=== PATIENT | male | born 1960 | race Caucasian/White ===

== ENCOUNTER 2016-07-30 10:52 | Inpatient (IN) | payer OTHER, MEDICARE ==
--- NOTE | ~2016-07-30 | CR72 ---
[facility] A Service of [facility] RADIOLOGY TEXT RESULTS PATIENT: JAYE CAO LOCATION: [address] : [birth year] UNIT #: [id number] AGE: [address]: Parviz Pelaez MD SEX: M ORDER DR: [id number] [facility] [address] [facility]. [place], [place] [address] [id number] I MR#: [id number] Acc #: [id number] NAME: JAYE CAO : 1960 SEX: M STUDY DATE/TIME: 07/31/2016 22:25 UNIT: [facility] ROOM: [facility] STUDY DESCRIPTION: CR Chest Single View Portable Attending Physician: Parviz Pelaez M.D. Ordering Physician: Parviz Pelaez M.D. Primary Care Physician: Joe De Oliveira Jr., M.D. MEDICAL IMAGING REPORT This report is preliminary unless electronic signature is present EXAM Portable chest. INDICATION Shortness of air. Respiratory failure today. PROCEDURE Frontal view of the chest. COMPARISON 07/30/2016 FINDINGS Heart size is probably stable. There is an ET tube that is positioned right at the silver. There is new interstitial and alveolar opacities in both lungs. No new dense consolidation. No visible pneumothorax. IMPRESSION 1. ET tube just at the silver. 2. New interstitial and alveolar opacities in both lungs with pulmonary edema type pattern. Dictated by... Mustapha Castro M.D. THIS IS AN ELECTRONICALLY VERIFIED REPORT Mustapha Castro M.D. at 08/01/2016 10:08 AM CHERYL/alina TD: 07/31/2016 23:02 JOB #: [id number] [facility] A Service [facility] RADIOLOGY TEXT RESULTS PATIENT: JAYE CAO LOCATION: [address] : [birth year] UNIT #: [id number] AGE: [address]: Parviz Pelaez MD SEX: M ORDER DR: MEDICAL IMAGING REPORT Page 1 of 1 COPY
--- NOTE | ~2016-07-30 | A ---
[facility] Nutrition Therapy DATE: 07/31/16 Patient: JAYE CAO Physician: NORMAN Address: [address] [place] [address] Room/Bed: [address], Zip: [place] [address] Admit Date: 07/30/16 Date of : [birth year] Height: 6 0 Weight: 154 70 NUTRITIONAL ASSESSMENT: REASON: NPO IN ICU ASSESSMENT PT IS 56 Y.O. MALE ADMITTED FOR UTI, AMS, SEPSIS, FEVER PMH: CONTRACTURES, DYSPHAGIA S/P PEG PLACEMENT, DM, HTN, ASTHMA, CVA, TRACHEOSTOMY & REMOVAL, CAD, CHF Anthropometrics: 6'0", WT: 154# (70 KG), BMI: 20.9, 87%IBW Labs: GLU: 118, CA+:7.7, ALB: 2.8 Meds: MIRALAX, LOVENOX, PROTONIX, LIPITOR, NOVOLOG, KCL, IV LEVAQUIN, NACL I/O & Bowel function: Skin Integrity: WOUND (L) LOWER LEG; SKIN BREAKDOWN NOTED UNDER CHIN; PEG SITE WOUND NOTED; SCALP WOUND Estimated Nutrition Needs: 8313-9196 KCAL (30-35 KCAL/KG BW) 84-105 G PRO (1.2-1.5 G PRO/KG BW) FLUIDS CONSISTENT W/KCAL NEEDS OR MANAGE PER MD Assessment: CHART REVIEWED AND EVENTS NOTED. PT SEEN FOR NPO IN ICU ASSESSMENT. PT NON-VERBAL AND IMMOBILE. PT ADMITTED FOR DX ABOVE. AT BEDSIDE REPORTS PT RECEIVES HOME BOLUS FEEDS OF ISOSOURCE 1.5 250 ML/6 CANS DAILY (NOTES TOLERATING AT HOME). OF NOTE, HOME BOLUS CANS IN ROOM. PLANS IN PLACE FOR PT TO TRANSFER TO TELEMETRY FLOOR LATER TODAY. REPORTED NO DIET QUESTIONS AT THIS TIME. RD TO FOLLOW. SEE RECOMMENDATIONS BELOW. OF NOTE, [facility] DOES NOT PROVIDE ISOSOURCE 1.5, BEST ALTERNATIVE IS OSMOLITE 1.5 -HOME ENTERAL NUTRITION BOLUS FEEDS PROVIDE 2250 KCAL, 102 G PRO, 1146 ML FREE H20 Dx: INADEQUATE ORAL INTAKE R/T PMH-DYSPHAGIA AEB PEG IN PLACE, PT PT RECEIVING HOME BOLUS FEEDS. Intervention: 1. NPO 2. PEG TUBE Monitoring, Evaluation and Goals: 1. ENTERAL NUTRITION; PROVIDE >80% ESTIMATED NUTRIENT NEEDS AT GOAL 2. WEIGHTS; PROMOTE WEIGHT MAINTENANCE; PREVENT WEIGHT LOSS 3. LABS; WNL 4. SKIN; PROMOTE SKIN HEALING [facility] Nutrition Therapy DATE: 07/31/16 Patient: JAYE CAO Physician: NORMAN Address: [address] [place] [address] Room/Bed: [facility], Zip: [place] [address] Admit Date: 07/30/16 Date of : [birth year] Height: 6 0 Weight: 154 70 5. GI; PROMOTE REGULAR GI FUNCTION MONITOR: -TF RATE/RESIDUALS -WEIGHTS -LABS Recommendations: 1. ONCE MEDICALLY FEASIBLE, INITIATE HOME BOLUS FEEDS OF ISOSOURCE 1.5/250 ML X 6 CANS DAILY (2 CANS TID OR 2 CANS BREAKFAST, 2 CANS LUNCH, 1 CAN DINNER + 1 CAN HS) -ADEQUATE FOR PT'S CURRENT ESTIMATED NEEDS ADD FREE H20 FLUSHES OF 180 ML q 4 HOURS TO MEET PT'S CURRENT ESTIMATED FLUID NEEDS OR MANAGE PER MD 2. IF 24-HOUR ENTERAL NUTRITION SUPPORT PREFERRED, RECOMMEND ENTERAL NUTRITION OF OSMOLITE 1.5 @ 20 ML/HR, ADVANCE 10 ML q 4 HOURS TO GOAL RATE OF 65 ML/HR -PROVIDES 2340 KCAL, 98 G PRO, 1186 ML FREE H20 3. MONITOR FOR SIGNS OF ENTERAL NUTRITION INTOLERANCE 4. OPTIMIZE BLOOD SUGAR CONTROL REGIMEN RD WILL F/U PER PROTOCOL PT IS MODERATELY COMPROMISED Respectfully, LEONARDO JANSEN MS, RD, LD [employer] [facility] cc: client file
--- NOTE | ~2016-07-30 | CR72 ---
[facility] A Service of [facility] & [facility] RADIOLOGY TEXT RESULTS PATIENT: JAYE CAO LOCATION: [place] [id number] : [birth year] UNIT #: [id number] AGE: [address]: Parviz Pelaez MD SEX: M ORDER DR: [id number] [facility] [address] [facility]. [place], [place] [address] [id number] I MR#: [id number] Acc #: [id number] NAME: JAYE CAO : 1960 SEX: M STUDY DATE/TIME: 08/04/2016 4:23 UNIT: [facility] ROOM: [facility] STUDY DESCRIPTION: CR Chest Single View Portable Attending Physician: Parviz Pelaez M.D. Ordering Physician: Mo Du M.D. Primary Care Physician: Joe De Oliveira Jr., M.D. MEDICAL IMAGING REPORT This report is preliminary unless electronic signature is present EXAM Portable chest INDICATION Respiratory failure. Followup. PROCEDURE Frontal view chest COMPARISON 08/02/2016 FINDINGS Heart size unchanged. Persistent blunting left costophrenic angle. No new dense consolidation. ET tube is stable. IMPRESSION Stable. Dictated by... Mustapha Castro M.D. THIS IS AN ELECTRONICALLY VERIFIED REPORT Mustapha Castro M.D. at 08/04/2016 10:24 PM CHERYL/sylwia TD: 08/04/2016 09:03 JOB #: [id number] MEDICAL IMAGING REPORT Page 1 of 1 COPY
--- NOTE | ~2016-07-30 | CO ---
Unit #: [id number] #: [id number] Patient: JAYE CAO [id number] [address] [address] [id number] I MR#: [id number] NAME: JAYE CAO ROOM: [facility] Age: 56 Sex: M Admission Date: 07/30/2016 : 1960 Attending Physician: Parviz Pelaez M.D. Primary Care Physician: Joe De Oliveira Jr., M.D. Consultation Date: 07/31/2016 CONSULTATION REPORT REASON FOR CONSULT ICU management. REASON FOR ADMISSION Altered mental status and fever. 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 The patient apparently lives at home with his in spite of his severe condition. He normally shows a thumbs up and he responds by shaking his head yes and no. She stated that they were more active for the last couple of weeks where they went to [employer] and [employer]. Yesterday, she noted that he was very hard to arouse with a high fever so she brought him to the emergency room. On presentation, the patient had a fever of 104 with a borderline blood pressure and significant UTI on his urinalysis. The patient has a condom catheter at home but his genitalia appears very erythematous. PAST MEDICAL HISTORY 1. Basilar artery CVA. 2. Ischemic cardiomyopathy. 3. Previous history of Staph bacteremia. 4. Diabetes. 5. Hypertension. 6. Asthma. PAST SURGICAL HISTORY 1. Trach. 2. PEG. SOCIAL HISTORY The patient lives with his and son. He is a lifelong nonsmoker. No history of alcohol or drug abuse. FAMILY HISTORY CVA. ALLERGIES Unit #: [id number] #: [id number] Patient: JAYE CAO Penicillin. HOME MEDICATIONS 1. Mucus pill. 2. Lisinopril. 3. Allergy pill. 4. Aspirin. 5. Tylenol. REVIEW OF SYSTEMS Unable to obtain due to patient condition. PHYSICAL EXAMINATION GENERAL: The patient is very lethargic. VITAL SIGNS: Blood pressure currently is 98.3, however, it was 104 on presentation. Blood pressure is 115/69, respiratory rate 16, O2 saturation 98%. HEENT: Atraumatic with disconjugate gaze. NECK: Very flexed. CHEST: Decreased breath sounds bilaterally. HEART: S1, S2. No murmur. ABDOMEN: Difficult to examine due to his condition but it was soft with a PEG tube in place. Slightly distended but nontender. EXTREMITIES: Severely contracted with trace edema. SEDIMENTATIONIST: The patient is nonverbal. He is very lethargic and hard to arouse. SKIN: Per staff report, he has multiple skin ulcers. DIAGNOSTIC STUDIES LABORATORY: Creatinine 0.6, chloride 102, CO2 25, white blood count 8.2, hemoglobin 13.3, platelets 106. IMAGING: Chest x-ray unremarkable. ASSESSMENT 1. Toxic metabolic encephalopathy. 2. Sepsis. 3. Urinary tract infection. 4. Severe contraction. 5. Cerebrovascular accident. 6. Malnutrition. 7. Ischemic cardiomyopathy. 8. Diabetes. 9. Hypertension. PLAN 1. The patient's vital signs are better right now after hydration and antibiotics. However, we need to discuss with his heart condition as he reportedly has ischemic cardiomyopathy but I am unable to see any diuretics on his medication list. 2. Will continue broad spectrum antibiotics pending culture. 3. We will monitor for complications like endocarditis, up from infected wounds. 4. Toribio catheter in place. He may need urology evaluation. 5. DVT prophylaxis. I would like to thank you for allowing me to be part of this patient's care. Unit #: [id number] #: [id number] Patient: JAYE CAO Dictated by... Cherry Thomas TD: 07/31/2016 08:18 JOB #: [id number] CONSULTATION REPORT Page 1 of 1 X HELENE SAMPSON MD CONSULTATION REPORT
--- NOTE | ~2016-07-30 | CR71 ---
[facility] A Service of [facility] & [facility] RADIOLOGY TEXT RESULTS PATIENT: JAYE CAO LOCATION: [address] : [birth year] UNIT #: [id number] AGE: [address]: Parviz Pelaez MD SEX: M ORDER DR: [id number] [facility] [address] [facility]. [place], [place] [address] [id number] I MR#: [id number] Acc #: [id number] NAME: JAYE CAO : 1960 SEX: M STUDY DATE/TIME: 07/31/2016 22:46 UNIT: [facility] ROOM: [facility] STUDY DESCRIPTION: CR Chest Single View Attending Physician: Parviz Pelaez M.D. Ordering Physician: Rose Mary Enciso M.D. Primary Care Physician: Joe De Oliveira Jr., M.D. MEDICAL IMAGING REPORT This report is preliminary unless electronic signature is present EXAM Chest x-ray, 07/31 at 22:46. INDICATIONS Endotracheal tube placement today. FINDINGS AP portable views of the chest are compared with earlier this evening. The endotracheal tube has been pulled back and is now in the [id number]-vk-[id number] trachea in good position. Bilateral infiltrates are again seen. These are not significantly changed and presumably reflect multifocal pneumonia. Dictated by... Victoriano Carey Jr., M.D. THIS IS AN ELECTRONICALLY VERIFIED REPORT Victoriano Carey Jr., M.D. at 08/01/2016 6:08 AM DEVON/alina TD: 07/31/2016 23:14 JOB #: [id number] MEDICAL IMAGING REPORT Page 1 of 1 COPY
--- NOTE | ~2016-07-30 | CR72 ---
[facility] A Service of [facility] & [facility] RADIOLOGY TEXT RESULTS PATIENT: JAYE CAO [facility] [birth year] UNIT #: [id number] AGE: [address]: Theodora Stark MD SEX: M ORDER DR: [id number] [facility] [address] [facility]. [place], [place] [address] [id number] I MR#: [id number] Acc #: [id number] NAME: JAYE CAO : 1960 SEX: M STUDY DATE/TIME: 07/30/2016 11:59 UNIT: [facility] ROOM: [id number] STUDY DESCRIPTION: CR Chest Single View Portable Attending Physician: Theodora Stark M.D. Ordering Physician: Halley Nieto M.D. Primary Care Physician: Joe De Oliveira Jr., M.D. MEDICAL IMAGING REPORT This report is preliminary unless electronic signature is present EXAM Portable chest INDICATION Fever today. Altered mental status. COMPARISON 03/13/2016 FINDINGS Study is severely limited due to head position. There is some atelectasis in the lung bases. Heart size appears unchanged. IMPRESSION Severely limited study due to head positioning. There is some atelectasis or consolidation within the right lung base. Dictated by... Pradeep Brown M.D. THIS IS AN ELECTRONICALLY VERIFIED REPORT Pradeep Brown M.D. at 07/30/2016 6:06 PM MARCOS/sylwia TD: 07/30/2016 15:47 JOB #: [id number] MEDICAL IMAGING REPORT Page 1 of 1 COPY
--- NOTE | ~2016-07-30 | CR72 ---
[facility] A Service of [facility] RADIOLOGY TEXT RESULTS PATIENT: JAYE CAO LOCATION: [place] [address]04 : [birth year] UNIT #: [id number] AGE: [address]: Parviz Pelaez MD SEX: M ORDER DR: [id number] [place] [address] [facility]. [place], [place] [address] [id number] I MR#: [id number] Acc #: [id number] NAME: JAYE CAO : 1960 SEX: M STUDY DATE/TIME: 08/05/2016 16:49 UNIT: [facility] ROOM: [facility] STUDY DESCRIPTION: CR Chest Single View Portable Attending Physician: Parviz Pelaez M.D. Ordering Physician: [facility] Primary Care Physician: Joe De Oliveira Jr., M.D. MEDICAL IMAGING REPORT This report is preliminary unless electronic signature is present EXAM Portable chest 08/05/2016 HISTORY 56-year-old male with shortness of air for 1 week. Sepsis. Possible lung donor. COMPARISON STUDIES Chest 08/05/2016. CT chest 08/05/2016. FINDINGS Frontal chest demonstrates small bilateral pleural effusions and bibasilar atelectasis. No pneumothorax. Heart size and mediastinum within normal limits. Pulmonary vasculature unremarkable. Endotracheal tube in stable position. IMPRESSION No change in small bilateral pleural effusions and bibasilar atelectasis. Endotracheal tube stable. STAT * RESULT Dictated by... Efren Singh M.D. THIS IS AN ELECTRONICALLY VERIFIED REPORT Efren Singh M.D. at 08/07/2016 1:31 PM ANTELMO/heather TD: 08/05/2016 21:22 [facility] A Service of [facility] RADIOLOGY TEXT RESULTS PATIENT: JAYE CAO LOCATION: [address]04 : [birth year] UNIT #: [id number] AGE: [address]: Parviz Pelaez MD SEX: M ORDER DR: JOB #: [id number] MEDICAL IMAGING REPORT Page 1 of 1 COPY
--- NOTE | ~2016-07-30 | CR72 ---
[facility] A Service of [facility] & [facility] RADIOLOGY TEXT RESULTS PATIENT: JAYE CAO LOCATION: [address] : [birth year] UNIT #: [id number] AGE: [address]: Parviz Pelaez MD SEX: M ORDER DR: [id number] [facility] [address] [facility]. [place], [place] [address] [id number] I MR#: [id number] Acc #: [id number] NAME: JAYE CAO : 1960 SEX: M STUDY DATE/TIME: 08/01/2016 05:31 UNIT: [facility] ROOM: [facility] STUDY DESCRIPTION: CR Chest Single View Portable Attending Physician: Parviz Pelaez M.D. Ordering Physician: Rose Mary Enciso M.D. Primary Care Physician: Joe De Oliveira Jr., M.D. MEDICAL IMAGING REPORT This report is preliminary unless electronic signature is present EXAM Portable chest, 08/01 at 05:31. INDICATIONS Respiratory failure. Pneumonia. FINDINGS AP portable views of the chest are compared with 07/31/2016. This exam is degraded by extremely poor positioning despite repeating it. The patient's chin overlies large portions of the chest. There is still probably some consolidation in both bases. I cannot assess the left lung apex at all. No convincing right-side pneumothorax. ET tube appears to be at the mid tracheal level, but, again, this is poorly evaluated as well. Dictated by... Victoriano Carey Jr., M.D. THIS IS AN ELECTRONICALLY VERIFIED REPORT Victoriano Carey Jr., M.D. at 08/01/2016 9:26 PM DEVON/deisy TD: 08/01/2016 07:18 JOB #: [id number] MEDICAL IMAGING REPORT Page 1 of 1 COPY
--- NOTE | ~2016-07-30 | CO ---
Unit #: [id number] #: [id number] Patient: JAYE CAO [id number] [address] [place], [place] [address] [id number] I MR#: [id number] NAME: JAYE CAO ROOM: [facility] Age: 56 Sex: M Admission Date: 07/30/2016 : 1960 Attending Physician: Parviz Pelaez M.D. Primary Care Physician: Joe De Oliveira Jr., M.D. Consultation Date: 07/30/2016 CONSULTATION REPORT REASON FOR CONSULTATION Elevated troponin. HISTORY OF PRESENT ILLNESS The patient is a 56-year-old male who is known to [facility]. Back in 2012 the patient had a non-STEMI and also had a cardiac cath. The cardiac cath showed severe 3-vessel coronary artery disease. At that time it was decided the patient was not a surgical candidate. The patient was also diagnosed with ischemic cardiomyopathy and was found to have an LVEF of 20%. Additional past medical history includes hypertension, diabetes and asthma. In 2011 the patient had a basilar artery CVA with dysphagia and PEG tube placement. He is nonverbal. He did have a trach placed that has been reversed. Most of my medical history has been obtained from the chart, discussion with the ER and previous past medical records. The patient's was also at the bedside. Again, the patient is nonverbal and cannot communicate with me during my interview. The patient's reports that twice last week she had taken the patient to [facility] to sit in the water. She reports then that she did scrape his leg. She reports that he has not had any unusual behavior for him. Typically, he communicates with her by being able to squeeze his hands or give her a thumbs up and a thumbs down. Typically, his eyes are open. The patient's noted today that he seemed more obtunded. She checked his temperature at home, and it was found to be 104. The patient's brought him to the emergency department for further evaluation. In the emergency department, the patient's initial vital signs were a temperature of 104.8, blood pressure 129/94, heart rate 109, respirations 26, and he is oxygenating 97%. Laboratory findings were concerning for urinary tract infection. The hospitalist team has admitted the patient, and the patient is currently receiving a STAT dose of meropenem. The patient's troponin was found to be 0.08. EKG shows normal sinus rhythm with old inferior Q waves, poor R wave progression and a rate of 100 beats per minute. Cardiology has been consulted for further workup. PAST MEDICAL HISTORY 1. Cardiac cath from December 11, 2012 showed severe 3-vessel coronary artery disease. His left main showed 20% distal stenosis while the mid LAD showed 70% stenosis. Both diagonals proximally had 80% stenosis. Apical branch had 90% stenosis. The patient's left circumflex was nondominant. The first marginal is large, and prior to Unit #: [id number] #: [id number] Patient: JAYE CAO that there was 90% to 95% diffuse stenosis. After the first large marginal branch, it was 100% occluded with collaterals from the left. The patient's RCA is dominant for posterior circulation, 100% occluded distally with quwat-ij-pjjjk and chxt-vo-xmtgk collateralization. At that time his EF was found to be 20%. 2. Ischemic cardiomyopathy with an ejection fraction of 20%. 3. 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 4. Vertebral artery stents. 5. History of non-STEMI. 6. Diabetes. 7. Hypertension. 8. History of pyelonephritis. 9. Asthma. 10. Contractures. PAST SURGICAL HISTORY 1. Cardiac cath, as detailed above. 2. Bilateral vertebral artery stents. 3. History of trach with reversal. 4. PEG tube placement. ALLERGIES Penicillin. HOME MEDICATIONS Zestril 2.5 mg p.o. daily p.r.n. FAMILY HISTORY CVA. SOCIAL HISTORY The patient is nonverbal and immobile. He has a PEG tube. He lives with his who performs all care for the patient. He has been a nonsmoker and a nondrinker. REVIEW OF SYSTEMS A 10-point review of systems was unable to be completed secondary to the patient's mentation. PHYSICAL EXAMINATION GENERAL: The patient is obtunded/lethargic. VITAL SIGNS: Temperature 103.1, heart rate 90, respirations 16, blood pressure 110/86, and he is oxygenating 95%. HEENT: Head is normocephalic. He does have a scalp wound on the top of his head. Pupils are sluggish. NECK: Supple. Trachea is midline. Normal carotid upstrokes. CHEST: Lungs are diminished bilaterally. No wheezes. CARDIOVASCULAR: S1, S2. Regular rate and rhythm. No murmurs, rubs or gallops appreciated. ABDOMEN: Abdomen is soft, nontender, nondistended. Patient does have a PEG tube. Bowel sounds are positive in all quadrants. SKIN: Warm, dry. The patient does have a laceration on his left calf and a scalp wound. EXTREMITIES: No clubbing or cyanosis. The patient has trace bilateral lower extremity edema. : The patient has a Toribio catheter placed with dark yellow urine. NEUROLOGIC: The patient, at baseline, is nonverbal. Currently obtunded. Unit #: [id number] #: [id number] Patient: JAYE CAO DIAGNOSTIC STUDIES LABORATORY RESULTS: White blood cells 8, hemoglobin 15, hematocrit 46.9, platelets 131. Sodium 136, potassium 3.4, chloride 100, CO2 26, BUN 22, creatinine 0.7, glucose 165. Urinalysis positive. Blood cultures and urine cultures are pending. Napdn-em-njcm troponin was 0.08 and now 0.05. CARDIOVASCULAR: EKG shows normal sinus rhythm with a rate of 100 beats per minute. Q waves in the inferior leads and poor R wave progression. ASSESSMENT 1. Elevated troponin of 0.08. 2. Toxic metabolic encephalopathy. 3. Sepsis. 4. Urinary tract infection. 5. Severe 3-vessel disease in 2013, not a surgical candidate. 6. Ischemic cardiomyopathy with an LVEF of 20% in 2013. 7. Hypertension. 8. History of non-STEMI in 2012. 9. Basilar artery CVA in 2011 with dysphagia, PEG tube and stent placement. 10. Nonverbal. 11. Diabetes. 12. Leg/scalp wounds. 13. Asthma. 14. Nonsmoker. 15. Full code. PLAN At this time will check an EKG in the morning and obtain a two-D echocardiogram. We will trend the patient's cardiac enzymes and troponin q.6 hours x3. We will check a BMP, mag, TSH and lipid panel in the morning. We will start the patient on Lovenox 1 mg/kg subcu daily. Will also add Lipitor 20 mg daily through PEG tube, aspirin 81 mg through PEG tube and Plavix [address] mg [address] PEG tube. Dr. Hebert will see and evaluate the patient, and further recommendations will be made. Dictated by... Louise Blunt A.P.R.N. for Dominick Hebert M.D. AM/jen TD: 07/31/2016 08:35 JOB #: [id number] CONSULTATION REPORT Page 1 of 1 X Louise Blunt APRN X CONSULTATION REPORT
--- NOTE | ~2016-07-30 | CR72 ---
[facility] A Service of [facility] & [facility] RADIOLOGY TEXT RESULTS PATIENT: JAYE CAO LOCATION: [address] : [birth year] UNIT #: [id number] AGE: [address]: Parviz Pelaez MD SEX: M ORDER DR: [id number] [facility] [address] [facility]. [place], [place] [address] [id number] I MR#: [id number] Acc #: [id number] NAME: JAYE CAO : 1960 SEX: M STUDY DATE/TIME: 08/04/2016 20:53 UNIT: [facility] ROOM: [facility] STUDY DESCRIPTION: CR Chest Single View Portable Attending Physician: Parviz Pelaez M.D. Ordering Physician: Ed Hamlet Alvarez M.D. Primary Care Physician: Joe De Oliveira Jr., M.D. MEDICAL IMAGING REPORT This report is preliminary unless electronic signature is present EXAM Portable chest HISTORY Organ donor patient. COMPARISON Portable chest, 08/04/2016 FINDINGS Portable view of the chest demonstrates a endotracheal tube in place, unchanged. Probable small left pleural effusion. Right lung remains clear. Mild prominence of the interstitium could reflect interstitial edema. Heart size within normal limits. No pneumothorax. Dictated by... Iam Brown M.D. THIS IS AN ELECTRONICALLY VERIFIED REPORT Iam Brown M.D. at 08/05/2016 1:18 PM CARMEN/stacie TD: 08/04/2016 21:53 JOB #: [id number] MEDICAL IMAGING REPORT Page 1 of 1 COPY
--- NOTE | ~2016-07-30 | CR72 ---
[facility] A Service of [facility] & [facility] RADIOLOGY TEXT RESULTS PATIENT: JAYE CAO LOCATION: [place] [id number] : [birth year] UNIT #: [id number] AGE: [address]: Parviz Pelaez MD SEX: M ORDER DR: [id number] [facility] [address] [facility]. [place], [place] [address] [id number] I MR#: [id number] Acc #: [id number] NAME: JAYE CAO : 1960 SEX: M STUDY DATE/TIME: 08/02/2016 5:47 UNIT: [facility] ROOM: [facility] STUDY DESCRIPTION: CR Chest Single View Portable Attending Physician: Parviz Pelaez M.D. Ordering Physician: Samuel Lange M.D. Primary Care Physician: Joe De Oliveira Jr., M.D. MEDICAL IMAGING REPORT This report is preliminary unless electronic signature is present EXAM Portable chest one view, 08/02/16 COMPARISON: 08/01/16 HISTORYL Respiratory failure requiring intubation for two days.. FINDINGS ET tube in place tip 4 cm above the silver. Question small area of atelectasis or infiltrate at the left lung base. Otherwise, while there is mild interstitial prominence, there is no consolidation or effusion or pneumothorax. Heart size normal. Dictated by... Jovan Nguyen M.D. THIS IS AN ELECTRONICALLY VERIFIED REPORT Jovan Nguyen M.D. at 08/02/2016 3:51 PM JANINA/shakeel TD: 08/02/2016 10:48 JOB #: [id number] MEDICAL IMAGING REPORT Page 1 of 1 COPY
--- NOTE | ~2016-07-30 | CT4 ---
[facility] A Service of [facility] & [facility] RADIOLOGY TEXT RESULTS PATIENT: JAYE CAO LOCATION: [address] : [birth year] UNIT #: [id number] AGE: [address]: Parviz Pelaez MD SEX: M ORDER DR: [id number] [facility] [address] [facility]. [place], [place] [address] [id number] I MR#: [id number] Acc #: [id number] NAME: JAYE CAO : 1960 SEX: M STUDY DATE/TIME: 07/30/2016 15:54 [facility] STUDY DESCRIPTION: CT Abd and Pelv Wo Cont Attending Physician: Theodora Stark M.D. Ordering Physician: Halley Nieto M.D. Primary Care Physician: Joe De Oliveira Jr., M.D. MEDICAL IMAGING REPORT This report is preliminary unless electronic signature is present EXAM CT of the abdomen and pelvis without contrast. INDICATION Fever, generalized abdominal tenderness starting today. TECHNIQUE Axial CT images were obtained from the dome of the diaphragm to the symphysis pubis. No intravenous contrast material was administered. This CT exam was performed with one or more of the following radiation dose reduction techniques: automatic exposure control, adjustment of mA and/or kV according to patient size, and iterative reconstruction. Patient's CT of the chest will be dictated separately. FINDINGS Liver appears unremarkable as is the gallbladder. The spleen appears unremarkable. Patient has a gastrostomy tube which appears to be appropriately positioned within the stomach. Adrenal glands are normal. Pancreas is mildly atrophic. No hydronephrosis is seen in either kidney. No stones are seen within either kidney. There is ectasia of the infrarenal abdominal aorta measuring up to 2.4 x 2.3 cm. The appendix is visualized and is within normal limits. This patient has a large volume of fecal material identified within the rectum likely reflecting fecal impaction. This has certainly increased when compared to the prior study from March 18, 2016. Extensive fecal burden is seen throughout the remainder of the colon likely reflecting some additional constipation. There is no evidence of mechanical small bowel obstruction. No pneumatosis, free air or free fluid is seen. Patient has a Toribio catheter within the urinary bladder which is decompressed, and the patient is noted to have stones within the urinary bladder. Review of bony windows demonstrates heterotopic ossification around the hips bilaterally. [facility] A Service of [facility] RADIOLOGY TEXT RESULTS PATIENT: JAYE CAO LOCATION: [address] 339-01 : [birth year] UNIT #: [id number] AGE: [address]: Parviz Pelaez MD SEX: M ORDER DR: IMPRESSION 1. Large volume of fecal material identified within the rectum. Findings are favored to represent fecal impaction. Proximal to this, patient is noted to have some fecal burden seen throughout the colon, likely reflecting diffuse constipation. No dilated loops of small bowel are seen to suggest a mechanical small bowel obstruction. 2. The appendix is visualized and is within normal limits. 3. Gastrostomy tube appears appropriately positioned within the stomach. 4. Urinary bladder is decompressed with a Toribio catheter. Multiple bladder stones are again seen. Dictated by... Ester Ruano M.D. THIS IS AN ELECTRONICALLY VERIFIED REPORT Ester Ruano M.D. at 07/31/2016 4:53 PM EDILBERTO/alina TD: 07/30/2016 21:20 JOB #: [id number] MEDICAL IMAGING REPORT Page 1 of 1 COPY
--- NOTE | ~2016-07-30 | CR72 ---
[facility] A Service of [facility] & [facility] RADIOLOGY TEXT RESULTS PATIENT: JAYE CAO LOCATION: [place] [id number] : [birth year] UNIT #: [id number] AGE: [address]: Parviz Pelaez MD SEX: M ORDER DR: [id number] [facility] [address] [place], [place] [address] [id number] I MR#: [id number] Acc #: [id number] NAME: JAYE CAO : 1960 SEX: M STUDY DATE/TIME: 08/05/2016 8:58 UNIT: [facility] ROOM: [facility] STUDY DESCRIPTION: CR Chest Single View Portable Attending Physician: Parviz Pelaez M.D. Ordering Physician: Parviz Pelaez M.D. Primary Care Physician: Joe De Oliveira Jr., M.D. MEDICAL IMAGING REPORT This report is preliminary unless electronic signature is present EXAM Portable chest HISTORY Respiratory failure, code evaluation. FINDINGS An AP view is obtained. The patient is intubated with ET tube above the silver. Heart size is stable. There is some consolidation at the left base. Lungs otherwise are clear. CONCLUSION Consolidation left lung base. ET tube in good position. Chest otherwise clear. Dictated by... Davis Hou M.D. THIS IS AN ELECTRONICALLY VERIFIED REPORT Davis Hou M.D. at 08/06/2016 3:38 PM SHALA/shakeel TD: 08/05/2016 10:54 JOB #: [id number] MEDICAL IMAGING REPORT Page 1 of 1 COPY
--- NOTE | ~2016-07-30 | CO ---
Unit #: [id number] #: [id number] Patient: JAYE CAO [id number] [facility] [address] [facility]. [place], [place] [address] [id number] I MR#: [id number] NAME: JAYE CAO ROOM: [facility]IC2 Age: 56 Sex: M Admission Date: 07/30/2016 : 1960 Attending Physician: Parviz Pelaez M.D. Primary Care Physician: Joe De Oliveira Jr., M.D. Consultation Date: 08/02/2016 CONSULTATION REPORT PRIMARY CARE PHYSICIAN Joe De Oliveira M.D. CONSULTING PHYSICIAN Dr. Tomer Lange. REASON FOR CONSULT Abnormal CT of the head. PATIENT IDENTIFICATION This is a 56-year-old male, evaluated in ICU room 4 at [facility]. SOURCE OF INFORMATION Obtained from the patient's as well as nursing staff and medical staff and the medical record. HISTORY OF PRESENT ILLNESS This is a 56-year-old male with past medical history of basilar artery stroke per the 5+ years ago. She states he was treated at [facility]. His baseline neurologic status is very low functioning according to the family. He has a history of CAD. He presents to [facility] with fever and altered mental status. Admitted with urinary tract infection. Apparently, there was concern about his airway and it was recommended by the ED physician and also Dr. Stark the admitting physician that the patient be intubated; however, the at that time is documented as refusing intubation. The patient was admitted for treatment of UTI and sepsis with initial lactic acid of 1.1. He is being treated for non-STEMI with elevated troponin of 0.08 on arrival. Cardiology is following. He also has ischemic cardiomyopathy with an LVEF of 20% in 2013. Neurology was asked to evaluate further as he has an abnormal CT scan of the head. Apparently, looking at nursing notes on 08/01/2016 at 21:30, Dr. Enciso was informed of an elevated heart rate of 135 to 166 and the was requesting pain medication for the patient. In the morning, the Toribio catheter was removed. The nurse received orders for IV morphine and metoprolol; however, the refused the morphine after orders were received. The patient apparently did receive the metoprolol. Apparently, the patient also had some increased rhonchi along with elevated heart rate. Stat portable chest x-ray was ordered. Efforts are being made to be possibly transferred to the ICU given his deterioration and the smoking pipe coater was called at that time. At that time, the patient was noted to be in PEA. CPR was begun and Code Blue was called. The patient was sent to the ICU for further evaluation. The patient continues to have decreased mental status; though, he has had Unit #: [id number] #: [id number] Patient: JAYE CAO significantly decreased mental status apparently since 07/28/2016 according to the family. On arrival, his [place] Coma Scale was documented as a 3. At baseline, apparently able to nod his head and give a thumbs up and squeeze with his right hand, move some toes, but other than that, he is nonverbal from his prior stroke. At this time, the patient is unresponsive. He is intubated. A CT scan was done of the head on 08/01/2016 following his Code blue. The exam is limited as the patient was scanned essentially coronally due to kyphosis, but it is markedly abnormal. There is diffuse infarct noted involving the entirety of the cerebellum and the entirety of the left cerebral hemisphere with a large portion of the right hemisphere also abnormal particularly in the HAZARDOUS MATERIAL TECHNICIAN distribution with findings keeping with global anoxic event with some effacement of the left lateral ventricle and appears to be a component of midline shift to the right. There is diffuse sulcal effacement. Imaging has been reviewed with Dr. Mckeon. Prognosis is very poor. PAST MEDICAL HISTORY 1. History of per the family of basilar artery stroke. She states that he was seen at [facility] 5+ years ago. Apparently, the patient received IV alteplase and underwent vertebral artery stenting. He has residual dysphagia, PEG tube placement and at one point, had a tracheostomy, but that has since been removed. Following a stroke, he has been essentially nonverbal at baseline per family. He is able to squeeze his right hand and give a thumbs up, but is essentially otherwise unable to communicate or move at baseline. 2. Admission to [facility] in 03/2016 for altered mental status and pyelonephritis. 3. Congestive heart failure with echocardiogram from 12/2012 that showed ejection fraction of 15% to 20%. 4. CAD. 5. History of cardiac catheterization in 2012 that showed left main coronary artery 20% distal stenosis, LAD with extensive plaque in the midportion 70%, two diagonal 80% proximal stenosis apical branch, 90% stenosis first marginal large prior to that severe 90% to 95% diffuse stenosis after the first large marginal branches are 100% occluded. 6. Diabetes. 7. Hypertension. 8. Asthma. 9. Tracheostomy placement and removal. 10. PEG tube placement. 11. Bilateral vertebral artery stenting. FAMILY HISTORY Positive for CVA. SOCIAL HISTORY The patient lives with his . No tobacco use, alcohol use, or illicit drug use. ALLERGIES Penicillin. HOME MEDICATIONS As per med rec include only Zestril. Medical record reports says he was on aspirin at home prior to that as well. His hospital medications are as per chart and have been reviewed. REVIEW OF SYSTEMS Unit #: [id number] #: [id number] Patient: JAYE CAO Unable to obtain from the patient given his mental status. PHYSICAL EXAMINATION VITAL SIGNS: Temperature 96.4, pulse 53, respirations 16, blood pressure 85/65, oxygen saturation 100%. Height 6 feet 0 inches, weight 174 pounds. NEUROLOGIC: The patient is not responsive. No meaningful response on exam. No clear response to noxious stimuli. He is intubated. He does have some sedation on board with fentanyl at 50 mcg. He has severe kyphosis, unable to lift his head up a little bit. He has dysconjugate gaze with negative oculocephalic reflex. Pupils are 5+ fixed and nonreactive. He has no withdrawal, posturing, or other response to noxious stimuli. Cranial nerve exam; no response to visual threats. Eyes as discussed above. No ptosis or nystagmus seen. Unable to assess sensation of face and scalp or strength of muscles of facial expression. Unable to assess hearing, tongue, uvula, or palate. Motor exam; no response. Sensory exam; no response. Reflexes; unable to elicit. Toes; no response. DIAGNOSTIC STUDIES IMAGING STUDIES: Please see above. LABORATORY RESULTS: Blood cultures preliminary, no growth after 24 hours x2 sets. White blood cell count 8.4, hemoglobin 11.8, hematocrit 36.6, platelet count 83. Sodium 144, potassium 3.2, chloride 113, CO2 of 21, glucose 205, BUN 16, creatinine 1.5, estimated GFR 52.1, calcium 7.8, AST 441, ALT 788, total protein 5.1, albumin 2.4, CK 432. Most recent troponin is 4.81. Most recent lactic acid is 4.2 on 08/01/2016. Urine culture greater than 100,000 colony count of Pseudomonas aeruginosa. Other labs and diagnostic studies are as per chart and have been reviewed. IMPRESSION 1. Anoxic brain injury. 2. Prior basilar stroke 5+ years ago. 3. Status post pulseless electrical activity/arrest. 4. Mwc-JY-kbvftuqwb myocardial infartion. 5. Acute respiratory failure with intubation. 6. Septic shock. 7. Aspiration pneumonia. PLAN I had a very long discussion with the patient's and explained CT findings of the head with her at length. The patient currently is a DNR. Dr. Mckeon also discussed with the family including the at length. This is a very very poor prognosis. Please see his note. The patient's is struggling at this time with accepting the prognosis; however, she is considering possible terminal extubation. We will follow along with you and provide family support and answer any questions that they have. We thank you very much for allowing us to assist in the care of this patient. Dictated by... Merlene Sinclair.P.RWinsome. for Cherry Phelps/constanza Unit #: [id number] #: [id number] Patient: JAYE CAO TD: 08/03/2016 12:13 JOB #: [id number] CONSULTATION REPORT Page 1 of 1 X Taylor Hurley CERTIFIED PROFESSIONAL CONTROLLER X CONSULTATION REPORT
--- NOTE | ~2016-07-30 | CT4 ---
[facility] A Service of [facility] & [facility] RADIOLOGY TEXT RESULTS PATIENT: JAYE CAO LOCATION: [address] : [birth year] UNIT #: [id number] AGE: [address]: Parviz Pelaez MD SEX: M ORDER DR: [id number] [facility] [address] [facility] [place], [place] [address] [id number] I MR#: [id number] Acc #: [id number] NAME: JAYE CAO : 1960 SEX: M STUDY DATE/TIME: 08/01/2016 22:22 UNIT: [facility] ROOM: [facility] STUDY DESCRIPTION: CT Abd and Pelv Wo Cont Attending Physician: Parviz Pelaez M.D. Ordering Physician: Rose Mary Enciso M.D. Primary Care Physician: Joe De Oliveira Jr., M.D. MEDICAL IMAGING REPORT This report is preliminary unless electronic signature is present EXAM CT abdomen and pelvis 08/01 INDICATIONS Coded last night. . Last night. Fever today. Abdominal pain today. TECHNIQUE Axial images were obtained through the abdomen and pelvis without contrast. Multiplanar reformats were obtained. Comparison is made with 07/30/2016. The CT exam was performed with one or more of the following radiation dose reduction techniques: automatic exposure control, adjustment of mA and/or kV according to patient size, and iterative reconstruction. FINDINGS Abdomen: New small bilateral pleural effusions are seen. There is coronary artery disease. Increasing infiltrates are noted in the lower lobes as well as in the right middle lobe concerning for pneumonia/aspiration. Gallbladder is hydropic with a short-axis diameter of 5.2 cm. It is otherwise normal. No biliary obstruction is seen. Note is made of gynecomastia. There is diffuse atherosclerotic disease. The unenhanced solid organs are grossly normal. Gastrostomy tube remains in good position within the body of the stomach. The stomach is not distended with fluid. There is some high-density material in the colon which may reflect contrast. The GI tract is otherwise unremarkable. Pelvis: The appendix is normal. Large volume of stool is again seen in the rectal vault and is worrisome for impaction. GI tract is otherwise within normal limits. There is a trace amount of free fluid. The bladder is decompressed by a Toribio. Multiple bladder stones are present. Chronic deformity in both hips noted, left greater than right. The left groin STS. [facility] A Service of [facility] & [facility] RADIOLOGY TEXT RESULTS PATIENT: JAYE CAO LOCATION: CICCU2 CICCU2-04 : 64 UNIT #: [id number] AGE: [address]: Parviz Pelaez MD SEX: M ORDER DR: catheter has its tip in the left external iliac vein. IMPRESSION 1. New infiltrates in the lower lobes and right middle lobe concerning for pneumonia/aspiration. There are new trace effusions bilaterally. 2. Atherosclerotic disease and coronary artery disease. 3. Hydropic but otherwise normal gallbladder. No biliary obstruction. 4. A well-placed gastrostomy tube. The stomach is now distended with fluid. There is no bowel obstruction. The appendix is normal. 5. Large volume of stool remains in the rectal vault suggesting impaction. 6. Multiple stones in the urinary bladder. The bladder is decompressed by a Toribio. 7. Nonobstructed kidneys. Dictated by... Victoriano Carey Jr., M.D. THIS IS AN ELECTRONICALLY VERIFIED REPORT Victoriano Carey Jr., M.D. at 08/02/2016 11:27 AM DEVON/shakeel TD: 08/02/2016 09:48 JOB #: [id number] MEDICAL IMAGING REPORT Page 1 of 1 COPY
--- NOTE | ~2016-07-30 | CO ---
Unit #: [id number] #: [id number] Patient: JAYE CAO [id number] [address] [address] [id number] I MR#: [id number] NAME: JAYE CAO [facility]: [facility] Age: 56 Sex: M Admission Date: 07/30/2016 : 1960 Attending Physician: Parviz Pelaez M.D. Primary Care Physician: Joe De Oliveira Jr., M.D. Consultation Date: 08/01/2016 CONSULTATION REPORT REASON FOR CONSULTATION Urinary sepsis, bladder stones. HISTORY OF PRESENT ILLNESS This is a 56-year-old man, who has had a major stroke, presented with high fever and altered mental status. He was admitted with sepsis, urinary tract infection. He is noted on CT scan to have multiple large bladder stones. He has been bed bound with contractures since a basilar artery cerebrovascular accident in 01/2011. According to the family, his bladder stones were noted at that time, but treatment deferred due to his condition. He is according to the family managed well at home with a condom catheter and only experienced one urinary infection; although, relatively recently. He had an indwelling Toribio catheter only briefly at the onset of his stroke. He is not able to provide meaningful history currently, but reportedly at baseline, can nod his head and give thumbs up and squeeze hands and move toes. PAST MEDICAL HISTORY Includes coronary artery disease, hypertension, congestive heart failure, diabetes, asthma. PAST SURGICAL HISTORY Tracheostomy, PEG tube, vertebral artery stents. HOME MEDICATIONS Lisinopril, aspirin. Receiving Plavix. NovoLog, Levaquin, Merrem, Levophed, Protonix, MiraLAX, potassium, Senokot. ALLERGIES Penicillin. FAMILY HISTORY Noncontributory. SOCIAL HISTORY Lives with . Nonsmoker, never smoked. REVIEW OF SYSTEMS Not possible. PHYSICAL EXAMINATION GENERAL: The patient is intubated, ventilated. Minimally responsive, Unit #: [id number] #: [id number] Patient: JAYE CAO lying on left side with multiple contractures. ABDOMEN: Soft. Toribio catheter in place. Draining urine which is clear. : Normal penis and testicles. No erosion or external abrasion. Digital exam not performed. EXTREMITIES: No edema. DIAGNOSTIC STUDIES LABORATORY RESULTS: Creatinine 1.0. WBC 13.9. Urine culture; Pseudomonas aeruginosa sensitive to Merrem and Zosyn, multi resistant. IMAGING STUDIES: CT scan of the abdomen and pelvis shows normal upper tracts, but there were multiple bladder stones up to 2 cm. IMPRESSION 1. Pseudomonas urinary tract infection with sepsis. 2. Bladder stones. 3. Pneumonia. PLAN When the patient is improved, we would recommend an elective open cystolithotomy with temporary Toribio catheter placement and when healed, could probably revert to a condom catheter again. Thank you for the consultation. We will follow with you. Dictated by... Cherry Liz/constanza TD: 08/02/2016 12:23 JOB #: [id number] CONSULTATION REPORT Page 1 of 1 X Victoriano Wilson MD X CONSULTATION REPORT
--- NOTE | ~2016-07-30 | DS ---
Unit #: [id number] #: [id number] Patient: JAYE CAO [id number] [address] [address] [id number] I MR#: [id number] NAME: JAYE CAO ROOM: [facility] Age: 56 Sex: M Admission Date: 07/30/2016 : 1960 Discharge Date: Attending Physician: Parviz Pelaez M.D. Primary Care Physician: Joe De Oliveira Jr., M.D. DISCHARGE SUMMARY HISTORY The patient was terminally extubated, and he peacefully. The details are as per transfer summary dictated on 08/05/2016. Dictated by... Cherry Gomes/jen TD: 08/30/2016 07:44 JOB #: [id number] DISCHARGE SUMMARY Page 1 of 1 X Parviz Pelaez MD X DISCHARGE SUMMARY
--- NOTE | ~2016-07-30 | CT57 ---
[facility] A Service of [facility] & [facility] RADIOLOGY TEXT RESULTS PATIENT: JAYE CAO LOCATION: [address] : [birth year] UNIT #: [id number] AGE: [address]: Parviz Pelaez MD SEX: M ORDER DR: [id number] [facility] [address] [facility]. [place], [place] [address] [id number] I MR#: [id number] Acc #: [id number] NAME: JAYE CAO : 1960 SEX: M STUDY DATE/TIME: 08/05/2016 15:52 UNIT: [facility] ROOM: [facility] STUDY DESCRIPTION: CT Chest Wo Cont Attending Physician: Parviz Pelaez M.D. Ordering Physician: [facility] Primary Care Physician: Joe De Oliveira Jr., M.D. MEDICAL IMAGING REPORT This report is preliminary unless electronic signature is present EXAM CT chest without contrast 08/05/2016, 15:52 HISTORY Fever since 07/30/2016. Sepsis. Respiratory failure today. Additional history of cardiac disease, hypertension, stroke, diabetes. STAT CT chest for requested per [facility] protocol. COMPARISON CT chest without contrast 07/30/2016. AP portable chest 08/05/2016 at 08:58. TECHNIQUE 5 mm axial images through the chest without contrast. Sagittal and coronal reformatted images were obtained. This CT exam was performed with one or more of the following radiation dose reduction techniques: automatic exposure control, adjustment of mA and/or kV according to patient size, and iterative reconstruction. FINDINGS Dense posterior bilateral lower lobe airspace disease changes are present which may represent changes of atelectasis, pneumonia or even sequelae of aspiration, not excluded. The right middle lobe and right upper lobe appear relatively clear. Suspected mild passive atelectasis in the posterior left upper lobe, as well. There are small layering bilateral pleural effusions, the right layering to a depth of 1.9 cm, the left layering to a depth of 1.4 cm. There is moderate cardiomegaly with dense coronary artery calcifications and/or stents. There is mild aneurysmal dilation of proximal to mid-descending thoracic aorta measuring about 3.1 cm. [facility]. [facility] A Service of [facility] & [facility] RADIOLOGY TEXT RESULTS PATIENT: JAYE CAO LOCATION: [facility]-04 : [birth year] UNIT #: [id number] AGE: [address]: Parviz Pelaez MD SEX: M ORDER DR: There is mild gallbladder distension but gallbladder does not appear appreciably thickened or inflamed. Remainder of the included upper abdominal organs appear unremarkable. Incidental note is made of mild bilateral gynecomastia. ET tube in satisfactory position. Heterotopic ossification is seen at the left first rib-sternal junction. There is cervical-thoracic kyphotic curvature. No acute osseous abnormalities are identified. IMPRESSION 1. Dense posterior bilateral lower lobe airspace disease may represent atelectasis, although other etiologies, such as pneumonia or even sequelae of aspiration, are not excluded. 2. Probable mild passive atelectasis in the posterior left upper lobe. 3. Small layering bilateral pleural effusions. 4. Mild cardiomegaly with dense coronary artery calcification. Please correlate with known cardiac history. 5. Mild aneurysmal dilation in the proximal to mid-descending thoracic aorta, 3.1 cm. STAT * RESULT Dictated by... Lorin Flores M.D. THIS IS AN ELECTRONICALLY VERIFIED REPORT Lorin Flores M.D. at 08/07/2016 2:14 PM LENORA/heather TD: 08/05/2016 18:03 JOB #: [id number] MEDICAL IMAGING REPORT Page 1 of 1 COPY
--- NOTE | ~2016-07-30 | EKG ---
PATIENT: JAYE CAO UNIT #: [id number] Ventricular Rate: 100 BPM Atrial Rate: 100 BPM P-R Interval: 132 ms QRS Duration: 114 ms Q-T Interval: 360 ms QTC Calculation(Bezet): 464 ms P [place]: 39 degrees Calculated R [place]: -5 degrees Calculated T [place]: -19 degrees Diagnosis Line: Normal sinus rhythm Diagnosis Line: Minimal voltage criteria for LVH, may be normal Diagnosis Line: variant Diagnosis Line: Inferior infarct (cited on or before 12-MAR-2016) Diagnosis Line: Abnormal ECG Diagnosis Line: When compared with ECG of 12-MAR-2016 22:31, Diagnosis Line: Nonspecific T wave abnormality now evident in Diagnosis Line: Lateral leads Diagnosis Line: Confirmed by ANTONIO DHALIWAL MD ([id number]) on Diagnosis Line: 07/30/2016 10:45:37 PM INTERPRETING MD: STEPHON
--- NOTE | ~2016-07-30 | NM10 ---
[facility] A Service of [facility] RADIOLOGY TEXT RESULTS PATIENT: JAYE CAO LOCATION: [address]16 : [birth year] UNIT #: [id number] AGE: [address]: Parviz Pelaez MD SEX: M ORDER DR: [id number] [facility]. [place], [place] [address] [id number] I MR#: [id number] Acc #: [id number] NAME: JAYE CAO : 1960 SEX: M STUDY DATE/TIME: 08/04/2016 15:03 UNIT: [facility] ROOM: [facility] STUDY DESCRIPTION: NM Brain Image W Vasc Flow Attending Physician: Parviz Pelaez M.D. Ordering Physician: Sunita Mckeon M.D. Primary Care Physician: Joe De Oliveira Jr., M.D. MEDICAL IMAGING REPORT This report is preliminary unless electronic signature is present EXAM Nuclear brain flow study, 08/04/2016 HISTORY 56-year-old male with decreasing mental status since 07/28/2016. Patient is now unresponsive status post cardiac arrest and anoxic brain injury. Order requests evaluation for brain perfusion. RADIOPHARMACEUTICAL 25.1 mCi technetium DTPA given IV. COMPARISON Correlation is made to head CT 08/01/2016. FINDINGS Flow images over the brain do not demonstrate any evidence of intracranial perfusion. Nonvisualization of the intracranial sinuses on the delayed images. IMPRESSION No intracranial perfusion identified. Dictated by... Efren Singh M.D. THIS IS AN ELECTRONICALLY VERIFIED REPORT Efren Singh M.D. at 08/04/2016 6:10 PM ANTELMO/stacie TD: 08/04/2016 16:18 JOB #: [id number] [facility] A Service of [facility] & [facility] RADIOLOGY TEXT RESULTS PATIENT: JAYE CAO LOCATION: [facility]16 : [birth year] UNIT #: [id number] AGE: [address]: Parviz Pelaez MD SEX: M ORDER DR: MEDICAL IMAGING REPORT Page 1 of 1 COPY
--- NOTE | ~2016-07-30 | CT71 ---
[facility] A Service of [facility] & [facility] RADIOLOGY TEXT RESULTS PATIENT: JAYE CAO LOCATION: [address] : [birth year] UNIT #: [id number] AGE: [address]: Parviz Pelaez MD SEX: M ORDER DR: [id number] [facility] [address] [facility]. [place], [place] [address] [id number] I MR#: [id number] Acc #: [id number] NAME: JAYE CAO : 1960 SEX: M STUDY DATE/TIME: 08/01/2016 22:19 UNIT: [facility] ROOM: [facility] STUDY DESCRIPTION: CT Head Wo Contrast Attending Physician: Parviz Pelaez M.D. Ordering Physician: Rose Mary Enciso M.D. Primary Care Physician: Joe De Oliveira Jr., M.D. MEDICAL IMAGING REPORT This report is preliminary unless electronic signature is present EXAM Head CT, 08/01/2016 INDICATION Status post code last night. Confusion since 07/27/2016. Fever today. This CT exam was performed with one or more of the following radiation dose reduction techniques: automatic exposure control, adjustment of mA and/or kV according to patient size, and iterative reconstruction. FINDINGS Noncontrast images were obtained through the head. Once again, the exam is essentially a coronal scan due to the patient's kyphosis. The study is markedly abnormal however. There is diffuse low density change in the left cerebral hemisphere and throughout the cerebellum on both sides. Similar changes are noted within A large portion of the right cerebral hemisphere, particularly involving the FRONT OFFICE SPEC distribution. The findings are in keeping with a diffuse anoxic event and infarct. There is sulcal effacement throughout. There does appear to be some component of midline shift to the right side, and there is effacement of the left lateral ventricle. IMPRESSION The exam remains limited as the patient was scanned essentially coronally due to kyphosis. Exam is markedly abnormal. Diffuse infarct is noted involving the entirety of the cerebellum and entirety of the left cerebral hemisphere. A large portion of the right hemisphere is also abnormal, particularly in the FRONT OFFICE SPEC distribution. Findings are in keeping with a global anoxic event. There is some effacement of the left lateral ventricle now and there does appear to be some component of midline shift to the right. There is diffuse sulcal effacement. [facility] A Service of [facility] & [facility] RADIOLOGY TEXT RESULTS PATIENT: JAYE COA LOCATION: [address] : [birth year] UNIT #: [id number] AGE: [address]: Parviz Pelaez MD SEX: M ORDER DR: STAT * RESULT Dictated by... Victoriano Carey Jr., M.D. THIS IS AN ELECTRONICALLY VERIFIED REPORT Victoriano Carey Jr., M.D. at 08/02/2016 4:58 AM DEVON/jenny TD: 08/02/2016 02:34 JOB #: [id number] MEDICAL IMAGING REPORT Page 1 of 1 COPY
--- NOTE | ~2016-07-30 | TOC ---
Unit #: [id number] #: [id number] Patient: JAYE COA [id number] [address] [address] [id number] I MR#: [id number] NAME: JAYE CAO ROOM: [facility] Age: 56 Sex: M Admission Date: 07/30/2016 : 1960 Attending Physician: Parviz Pelaez M.D. Primary Care Physician: Joe De Oliveira Jr., M.D. TRANSFER OF CARE SUMMARY DIAGNOSES ON ADMISSION 1. Altered mental status. 2. Sepsis. CURRENT DIAGNOSES 1. Septic shock. 2. Acute respiratory failure, ventilator dependent. 3. Anoxic brain injury. 4. Status post cardiopulmonary arrest. 5. History of cerebrovascular accident. 6. Hypertension. 7. Type 2 diabetes mellitus. 8. Coronary artery disease. 9. Bronchial asthma. 10. Leg and scalp wounds. 11. Hyponatremia. 12. Cardiomyopathy with ejection fraction of 30% to 35%. 13. Aspiration pneumonia. 14. Acute non ST elevation myocardial infarction. 15. Elevated liver function tests. CONSULTATIONS 1. Dr. Hatch in cardiac consultation. 2. Dr. Du in pulmonary consultation. 3. Dr. Wilson in urology consultation. 4. Dr. Mckeon in neurology consultation. HOSPITAL COURSE A 56-year-old male was admitted to the hospital with altered mental status. Details are as per admission H and P. Acute respiratory failure: Patient was seen by Dr. Lange in consultation. Patient was intubated after undergoing cardiopulmonary arrest. Patient is ventilator dependent. Septic shock: The patient required vasopressors to maintain his blood pressure. Acute non ST elevation TN: Patient was seen by cardiology in consultation. Anoxic brain injury: Patient was seen by Dr. Mckeon in consultation and was diagnosed with anoxic brain injury. Unit #: [id number] #: [id number] Patient: JAYE CAO After discussing with patient's family, patient was made DNR. Patient's has agreed to involve [facility] and currently [facility] is working on recipient alignment. PLAN Once the recipients are aligned, then patient will be extubated. The plan has been discussed with patient's in detail. The rest of the hospital course will be dictated by my partner. Dictated by... Cherry Gomes TD: 08/05/2016 15:08 JOB #: [id number] TRANSFER OF CARE SUMMARY Page 1 of 1 X Parviz Pelaez MD TRANSFER OF CARE SUMMARY
--- NOTE | ~2016-07-30 | EKG ---
PATIENT: JAYE CAO UNIT #: [id number] Ventricular Rate: 59 BPM Atrial Rate: 59 BPM P-R Interval: 156 ms QRS Duration: 112 ms Q-T Interval: 410 ms QTC Calculation(Bezet): 405 ms P [place]: 2 degrees Calculated R [place]: 0 degrees Calculated T [place]: -25 degrees Diagnosis Line: Sinus bradycardia Diagnosis Line: Inferior infarct (cited on or before 12-MAR-2016) Diagnosis Line: Abnormal ECG Diagnosis Line: When compared with ECG of 30-JUL-2016 11:21, Diagnosis Line: Vent. rate has decreased BY 41 BPM Diagnosis Line: QT has shortened Diagnosis Line: Confirmed by ANTONIO DHALIWAL MD ([id number]) on Diagnosis Line: 08/01/2016 7:21:05 AM INTERPRETING : STEPHON
--- NOTE | ~2016-07-30 | EKG ---
PATIENT: JAYE CAO UNIT #: [id number] Ventricular Rate: 105 BPM Atrial Rate: 105 BPM P-R Interval: 154 ms QRS Duration: 128 ms Q-T Interval: 392 ms QTC Calculation(Bezet): 518 ms P [place]: 46 degrees Calculated R [place]: -37 degrees Calculated T [place]: 66 degrees Diagnosis Line: Sinus tachycardia with frequent Premature Diagnosis Line: ventricular complexes Diagnosis Line: Left axis deviation Diagnosis Line: Non-specific intra-ventricular conduction block Diagnosis Line: Nonspecific T wave abnormality Diagnosis Line: Abnormal ECG Diagnosis Line: When compared with ECG of 31-JUL-2016 06:32, Diagnosis Line: (unconfirmed) Diagnosis Line: Premature ventricular complexes are now Present Diagnosis Line: Vent. rate has increased BY 46 BPM Diagnosis Line: Questionable change in QRS duration Diagnosis Line: Criteria for Inferior infarct are no longer Diagnosis Line: Present Diagnosis Line: Confirmed by YOHAN ESTRADA MD ([id number]) on Diagnosis Line: 08/02/2016 1:39:35 PM INTERPRETING MD: SEAN YADAV
--- NOTE | ~2016-07-30 | EKG ---
PATIENT: JAYE CAO UNIT #: [id number] Ventricular Rate: 76 BPM Atrial Rate: 76 BPM P-R Interval: 146 ms QRS Duration: 108 ms Q-T Interval: 446 ms QTC Calculation(Bezet): 501 ms P [place]: 19 degrees Calculated R [place]: 21 degrees Calculated T [place]: 58 degrees Diagnosis Line: Normal sinus rhythm Diagnosis Line: Low voltage QRS Diagnosis Line: Inferior infarct , age undetermined Diagnosis Line: Prolonged QT Diagnosis Line: Abnormal ECG Diagnosis Line: When compared with ECG of 31-JUL-2016 23:01, Diagnosis Line: (unconfirmed) Diagnosis Line: Premature ventricular complexes are no longer Diagnosis Line: Present Diagnosis Line: QRS duration has decreased Diagnosis Line: Inferior infarct is now Present Diagnosis Line: Non-specific change in ST segment in Inferior Diagnosis Line: leads Diagnosis Line: Confirmed by YOHAN ESTRADA MD ([id number]) on Diagnosis Line: 08/02/2016 1:39:46 PM INTERPRETING MD: SEAN YADAV
--- NOTE | ~2016-07-30 | HP ---
Unit #: [id number] #: [id number] Patient: JAYE CAO [id number] [facility]. [place], [place] [address] [id number] I MR#: [id number] NAME: JAYE CAO ROOM: [facility] Age: 56 Sex: M Admission Date: 07/30/2016 : 1960 Attending Physician: Theodora Stark M.D. Primary Care Physician: Joe De Oliveira Jr., M.D. HISTORY AND PHYSICAL CHIEF COMPLAINT Fever, altered mental status. HISTORY OF PRESENT ILLNESS The patient is a 56-year-old male with past medical history of coronary artery disease, CHF, cerebrovascular accident, hypertension, diabetes, asthma who presented to the emergency department for evaluation of the above. History is obtained from chart review and discussion with ER staff, as well as from the patient's who is at the bedside. The patient is nonverbal at baseline. The patient apparently, at baseline, is able to nod his head and give thumbs up. He is able to squeeze the right hand and move some toes. He has been less interactive since July 28, 2016. Yesterday he had a temperature of 99. This morning it was 104. He was told to come to the emergency department for further evaluation. In the emergency department, initial temperature was 104.8, pulse 109, respirations 26, blood pressure 129/94. Chest x-ray is limited but shows atelectasis versus consolidation involving the right base. He also has findings concerning for urinary tract infection. He was given 800 mg of Motrin, as well as 2 liters of normal saline. Meropenem has been ordered. He is being admitted to [facility] for evaluation and further treatment. Of note, the patient's GCS is 3. The emergency room physician, Dr. Nieto, spoke with the patient's regarding intubation due to inability to protect the airway. The refused. I had the same conversation. The continued to decline. He is being admitted to [facility] for evaluation and further treatment. PAST MEDICAL HISTORY 1. Admission to [facility] March 13 through March 19, 2016 for altered mental status and pyelonephritis. 2. Congestive heart failure. Per cardiology consultation note, the patient had an echocardiogram December 2012 that showed an ejection fraction of 15% to 20%. He has seen Drs. Rob and Anup in the past. 3. Coronary artery disease. Again, per cardiology consultation note, the patient had a cardiac catheterization December 11, 2012 that showed left main coronary artery 20% distal stenosis, LAD with extensive plaque in the mid portion 70%, two diagonals with 80% proximal stenosis, apical branch 90% stenosis. First marginal is large. Prior to that severe 90% to 95% diffuse stenosis. After the first large marginal branch, it is 100% occluded (severe 3-vessel coronary artery disease per cardiology consultation note dated March 18, 2016). Unit #: [id number] #: [id number] Patient: JAYE CAO 4. History of basilar artery cerebrovascular accident. The patient received TPA. He then underwent bilateral vertebral artery stenting. He had dysphagia and is status post PEG tube placement. He initially had a tracheostomy, as well, but that has been removed. He is nonverbal at baseline. He is able to squeeze his right hand and give thumbs up. He also is able to nod at baseline but is not ambulatory. 5. Diabetes. 6. Hypertension. 7. Asthma. PAST SURGICAL HISTORY 1. Tracheostomy placement and removal. 2. PEG tube placement. 3. Bilateral vertebral artery stents. SOCIAL HISTORY The patient lives with his . There is no tobacco or alcohol use. CODE STATUS His code status is a full code. FAMILY HISTORY Family history is notable for cerebrovascular accident. ALLERGIES Penicillin. HOME MEDICATIONS Lisinopril, aspirin. Home medications will need to be reviewed and verified. REVIEW OF SYSTEMS A complete review of systems is unobtainable from the patient but negative except as indicated in the HPI per the patient's . The patient has a scalp wound, for which he has been seeing the wound care center at [facility]. He also has an abrasion on his left leg that he received in a pool this weekend. Also of note, the family states that the patient attended the [employer] concert on Friday and then swam in the pool. Family thought that they had "worn him out." They were attributing his symptoms to all the activity. PHYSICAL EXAMINATION VITAL SIGNS: Temperature 104.8, pulse 109, respirations 26, blood pressure 129/94, oxygen saturation 97% on room air. GENERAL: The patient is a male who is completely obtunded. HEENT: The head is atraumatic. Mucous membranes are dry. NECK: Supple. Trachea is midline. CARDIOVASCULAR: Regular rate and rhythm. RESPIRATORY: Lungs demonstrate decreased breath sounds. Breathing is not currently labored. ABDOMEN: Soft with bowel sounds present in all 4 quadrants. He does have a PEG tube in place. EXTREMITIES: There is no pedal edema. NEUROLOGIC: The patient is unresponsive to painful stimuli. PSYCHIATRIC: Unable to assess. SKIN: The patient does have a wound on his hair-bearing scalp. There is also an abrasion on the lateral aspect of the left leg. Unit #: [id number] #: [id number] Patient: JAYE CAO DIAGNOSTIC TESTS CARDIOVASCULAR: EKG shows normal sinus rhythm with a rate of 100 beats per minute. IMAGING: Chest x-ray shows atelectasis versus consolidation involving the right base. LABORATORY: Arterial blood gas shows a pH of 7.454, PCO2 of 39.8, and PO2 of 66.9. Urinalysis notable for 2+ leukocyte esterase, positive nitrites, 3+ blood, 100-200 red blood cells, 50-100 white blood cells, and 1+ bacteria. Comprehensive metabolic panel notable for potassium of 3.4. Lactic acid is 1.1. Troponin is 0.08. INR is 1.1. Complete blood count notable for platelets of 131,000. ASSESSMENT The patient is a 56-year-old male with: 1. Altered mental status. The patient's [place] Coma Scale is 3. Both the emergency room physician and I have recommended intubation due to inability to protect the airway. Family refuses. They understand that this may worsen his condition. 2. Sepsis with initial lactic acid of 1.1. 3. Urinary tract infection. 4. Hypokalemia. 5. Elevated troponin (0.08). 6. History of coronary artery disease. 7. Congestive heart failure with ejection fraction of 15% to 20%. 8. History of cerebrovascular accident involving the basilar artery. He is status post bilateral vertebral artery stents. He has residual dysphagia with percutaneous endoscopic gastrostomy tube placement. He is nonverbal at baseline. 9. Hypertension. 10. Diabetes. 11. Asthma. 12. Leg and scalp wounds present on admission. PLAN 1. Admit to ICU due to possible eminent respiratory failure. 2. N.p.o. 3. Normal saline at 75 mL/hour. 4. TSH, B12, and folate. 5. Neuro checks. 6. Sepsis protocol with repeat lactic acid. 7. Vancomycin, tobramycin, Levaquin, and aztreonam for possible healthcare-associated pneumonia and to cover for urinary tract infection pending further workup. 8. Procalcitonin level. 9. Urine culture and sensitivity on urine in the lab. 10. CT of the chest, abdomen, and pelvis without contrast for further evaluation of sepsis, urinary tract infection, and possible pneumonia. 11. Check magnesium level. 12. Potassium/magnesium protocol. 13. Serial cardiac enzymes. 14. Consult Dr. Hatch regarding elevated troponin. 15. Consult Dr. Samuel Lange regarding ICU admission. I have spoken with Dr. Du regarding this patient. 16. Hemoglobin A1c. 17. Low-dose sliding scale insulin with Accu-Cheks. 18. Repeat labs in the morning. Unit #: [id number] #: [id number] Patient: JAYE CAO 19. SCDs for DVT prophylaxis. 20. Protonix for GI prophylaxis since the patient will be in the ICU. 21. Wound care consult regarding leg and scalp wounds. 22. P.r.n. Tylenol. 23. Regarding code status, the patient is a Full Code. The patient's is currently refusing intubation. Thirty-nine (39) minutes critical care time spent in the care of this patient (1:00 to 1:39 p.m.). ADDITIONAL JOB #: [id number] Dictated by Cherry Whittaker/rhett TD: 07/30/2016 17:53 JOB #: [id number] HISTORY AND PHYSICAL Page 1 of 1 X Theodora Stark MD X HISTORY AND PHYSICAL
--- NOTE | ~2016-07-30 | CT57 ---
[facility] A Service of [facility] & [facility] RADIOLOGY TEXT RESULTS PATIENT: JAYE CAO LOCATION: A 339-01 : 64 UNIT #: [id number] AGE: [address]: Parviz Pelaez MD SEX: M ORDER DR: [id number] [facility] [address] [place], [place] [address] [id number] MR#: [id number] #: [id number] NAME: JAYE CAO : 1960 SEX: M STUDY DATE/TIME: 07/30/2016 15:54 UNIT: [facility] ROOM: [facility] STUDY DESCRIPTION: CT Chest Wo Cont Attending Physician: Theodora Stark M.D. Ordering Physician: Halley Nieto M.D. Primary Care Physician: Joe De Oliveira Jr., M.D. MEDICAL IMAGING REPORT This report is preliminary unless electronic signature is present EXAM CT of the chest without contrast. INDICATION Fever and decreased level of consciousness and shortness of breath starting today. Patient has a history of a massive stroke. TECHNIQUE Axial CT images were obtained from the thoracic inlet through the dome of the diaphragm. No intravenous contrast material was administered. This CT exam was performed with one or more of the following radiation dose reduction techniques: automatic exposure control, adjustment of mA and/or kV according to patient size, and iterative reconstruction. FINDINGS The patient had some bibasilar atelectasis but I am not convinced that I can see any acute infiltrates. There is no pleural or pericardial effusion. There is cardiomegaly. The thyroid gland appears unremarkable. There is no hiatal hernia. There are coronary artery calcifications. There is aneurysmal dilatation of the descending thoracic aorta which measures about 3.3 cm proximally and about 3.0 cm within the mid portion. Mediastinal lymph nodes do not appear pathologically enlarged. No aggressive osseous abnormalities are seen. IMPRESSION 1. No acute intrathoracic process is seen to account the patient's symptomatology. There does appear to be some bibasilar atelectasis but I am not convinced I can see any acute infiltrates. 2. Aneurysmal dilatation of the proximal and mid descending thoracic aorta. 3. Coronary artery calcifications. 4. Also noted but not mentioned in the report is bilateral gynecomastia. 5. Patient's CT of the abdomen and chest will be dictated separately. [facility] A Service of [facility] RADIOLOGY TEXT RESULTS PATIENT: JAYE CAO LOCATION: [facility] 339-01 : [birth year] UNIT #: [id number] AGE: [address]: Parviz Pelaez MD SEX: M ORDER DR: Dictated by... Ester Ruano M.D. THIS IS AN ELECTRONICALLY VERIFIED REPORT Ester Ruano M.D. at 07/31/2016 4:53 PM EDILBERTO/alina TD: 07/30/2016 20:49 JOB #: [id number] MEDICAL IMAGING REPORT Page 1 of 1 COPY
[~2016-07-30 10:52] MED LIST: ACETAMINOPHEN650 M3 PEG; ASPIRIN81 MG PEG; BACTRIM DS TABL1 TA1 GT; CERTA VITE9 MG/15 ML PEG; CLARITIN5 MG/5 ML PEG; COREG3.125 MG PEG; FAMOTIDINE20 M1 PEG; FUROSEMIDE40 MG PEG; K-LOR20 MEQ PEG; LEVALBUTER1.25 MG/1 IH; LIPITOR40 MG DOB; LIQUITUSS200 MG/5 M PEG; LISINOPRIL10 MG PEG; LOPRESSOR PEG; MIRALAX17 GM GT; NITROGLYGERIN0.4 MG SL; PLAVIX PEG; VANCOMYCIN1.5 GM/252 IV; ZESTRIL2.5 M1 PO
[2016-07-30] MEDS ORDERED: PATIENT'S PHARMACY (11:30)
[2016-07-30] MEDS ORDERED: LISINOPRIL PO (11:31)
[2016-07-30 11:43] LABS: BASOPHIL# 0.1 X10e3 (0-0.3); BASOPHIL% 0.8 % (0-2.5); EOSINOPHIL% 0.3 % (0.0-7.0); HEMATOCRIT 46.4 % (38.0-50.0); LYMPHOCYTE# 1.8 X10e3 (1.0-3.5); LYMPHOCYTE% 22.5 % (17.0-45.0); MEAN CELL VOLUME 87.2 FL (83-96); MEAN CORPUSCULAR HEMOGLOBIN 28.2 PG (28-34); MEAN CORPUSCULAR HGB CONC 32.3 g/dL (30-36); MEAN PLATELET VOLUME 9.7 FL (6.5-11.5); MONOCYTE# 0.8 X10e3 (0-1.0); MONOCYTE% 9.7 % (3.0-12.0); NEUTROPHIL# 5.4 X10e3 (1.5-7.1); NEUTROPHIL% 66.7 % (40-75); PLATELET COUNT 131 X10e3 (140-420); RED BLOOD COUNT 5.32 X10e (3.90-5.60); RED CELL DISTRIBUTION WIDTH 16.3 % (11.0-15.5)
[2016-07-30 11:44] LABS: DIFF IND NO
[2016-07-30 11:57] LABS: INR 1.1; PARTIAL THROMBOPLASTIN TIME 29.7 SECONDS (23.5-31.3)
[2016-07-30 12:17] LABS: POC - CKMB <1.0 ng/mL (0.0-7.9); POC - TROPONIN 0.08 ng/mL (<=0.05)
[2016-07-30 12:23] LABS: URINE SOURCE CLEAN CATCH
[2016-07-30 12:28] LABS: URINE APPEARANCE CLOUDY; URINE BILIRUBIN NEG (NEG); URINE BLOOD 3+ (NEG); URINE COLOR YELLOW; URINE GLUCOSE NEG (NEG); URINE KETONE 1+ (NEG); URINE LEUKOCYTE ESTERASE 2+ (NEG); URINE NITRATE POS (NEG); URINE PROTEIN 1+ (NEG); URINE SPECIFIC GRAVITY 1.019 (1.003-1.035); URINE UROBILINOGEN 0.2 MG/DL (NEG)
[2016-07-30 12:30] LABS: CULTURE INDICATED? YES; URBCS1 AUWI 100-200 /[HPF] (0-2); URINE BACTERIA AUWI 1+ (NEGATIVE); URINE SQUAMOUS EPITHELIAL CELL NONE SEEN /[HPF]; UWBCS1 AUWI 50-100 (0-5)
[2016-07-30 12:34] LABS: ALBUMIN SERUM 3.6 g/dL (3.5-5.0); BILIRUBIN, DIRECT 0.1 mg/dL (0.0-0.2); BILIRUBIN,TOTAL 1.1 mg/dL (0.2-2.0); BUN/CREATININE RATIO 31.42; CALCIUM SERUM 8.7 mg/dL (8.4-10.2); CREATININE SERUM 0.7 mg/dL (0.6-1.4); MAGNESIUM 1.9 mg/dL (1.6-3.0); POTASSIUM 3.4 mmol/L (3.5-5.1); PROTEIN TOTAL SERUM 7.2 g/dL (6.0-8.3)
[2016-07-30 12:40] LABS: URINE MUCUS PRESENT
[2016-07-30 13:37] LABS: ARTERIAL BLD GAS O2 SATURATION 94.9 % (90.0-100.0); ARTERIAL BLOOD GAS CARBOXY HB 1.2 %sat (0.0-9.0); ARTERIAL BLOOD GAS HCO3 27.9 mmol/L; ARTERIAL BLOOD GAS MET HB 0.4 %sat (0.0-2.0); ARTERIAL BLOOD GAS PCO2 39.8 mmHg (35.0-45.0); ARTERIAL BLOOD GAS PO2 66.9 mmHg (80.0-100); ARTERIAL BLOOD GAS pH 7.454 (7.350-7.450)
[2016-07-30 13:38] LABS: ARTERIAL BLOOD GAS ALLEN TEST NORMAL; ARTERIAL BLOOD GAS ART SITE RIGHT RADIAL; ARTERIAL DRAW? YES
[2016-07-30 14:22] LABS: POC - CKMB <1.0 ng/mL (0.0-7.9); POC - TROPONIN <0.05 ng/mL (<=0.05)
[2016-07-30 17:54] LABS: FOLATE (FOLIC ACID) >23.3 ng/mL (>5.8)
[2016-07-30 21:10] LABS: %MB 0.9 % (0.0-4.0); MB 0.9 ng/ml
[2016-07-31 03:01] LABS: BASOPHIL# 0.1 X10e3 (0-0.3); EOSINOPHIL# 0.2 X10e3 (0-0.7); EOSINOPHIL% 2.1 % (0.0-7.0); HEMATOCRIT 41.1 % (38.0-50.0); HEMOGLOBIN 13.3 gm/dL (13.0-16.0); LYMPHOCYTE# 2.4 X10e3 (1.0-3.5); MEAN CELL VOLUME 87.3 FL (83-96); MEAN CORPUSCULAR HEMOGLOBIN 28.2 PG (28-34); MEAN CORPUSCULAR HGB CONC 32.3 g/dL (30-36); MEAN PLATELET VOLUME 9.6 FL (6.5-11.5); MONOCYTE# 0.9 X10e3 (0-1.0); MONOCYTE% 10.7 % (3.0-12.0); NEUTROPHIL# 4.7 X10e3 (1.5-7.1); NEUTROPHIL% 57.2 % (40-75); PLATELET COUNT 106 X10e3 (140-420); RED BLOOD COUNT 4.71 X10e (3.90-5.60); RED CELL DISTRIBUTION WIDTH 16.1 % (11.0-15.5); WHITE BLOOD COUNT 8.2 X10e3 (4.0-10.5)
[2016-07-31 03:05] LABS: DIFF IND NO
[2016-07-31 03:27] LABS: ALBUMIN SERUM 2.8 g/dL (3.5-5.0); CALCIUM SERUM 7.7 mg/dL (8.4-10.2); CREATININE SERUM 0.6 mg/dL (0.6-1.4); MAGNESIUM 1.8 mg/dL (1.6-3.0); POTASSIUM 3.8 mmol/L (3.5-5.1); PROTEIN TOTAL SERUM 5.6 g/dL (6.0-8.3)
[2016-07-31 03:46] LABS: %MB 1.8 % (0.0-4.0); MB 1.4 ng/ml
[2016-07-31 09:45] LABS: MB 1.6 ng/ml
[2016-07-31 22:32] LABS: HEMATOCRIT 45.5 % (38.0-50.0); HEMOGLOBIN 14.2 gm/dL (13.0-16.0); MEAN CELL VOLUME 90.1 FL (83-96); MEAN CORPUSCULAR HGB CONC 31.1 g/dL (30-36); MEAN PLATELET VOLUME 10.4 FL (6.5-11.5); RED BLOOD COUNT 5.05 X10e (3.90-5.60); RED CELL DISTRIBUTION WIDTH 16.3 % (11.0-15.5); WHITE BLOOD COUNT 16.5 X10e3 (4.0-10.5)
[2016-07-31 23:22] LABS: ARTERIAL BLOOD GAS PCO2 36.1 mmHg (35.0-45.0); ARTERIAL BLOOD GAS pH 7.232 (7.350-7.450)
[2016-07-31 23:25] LABS: ARTERIAL BLOOD GAS ART SITE RIGHT BRACHIAL; ARTERIAL BLOOD GAS CARBOXY HB 0.7 %sat (0.0-9.0); ARTERIAL BLOOD GAS DELIVERY VENT; ARTERIAL BLOOD GAS HCO3 15.2 mmol/L; ARTERIAL BLOOD GAS MET HB 0.8 %sat (0.0-2.0); ARTERIAL BLOOD GAS VENT MODE AC; ARTERIAL DRAW? YES
[2016-07-31 23:49] LABS: INR 1.2; PARTIAL THROMBOPLASTIN TIME 32.9 SECONDS (23.5-31.3); PROTHROMBIN TIME (PATIENT) 13.5 SECONDS (10.0-11.7)
[2016-07-31 23:51] LABS: BASOPHIL# 0.1 X10e3 (0-0.3); BASOPHIL% 0.5 % (0-2.5); EOSINOPHIL# 0.1 X10e3 (0-0.7); EOSINOPHIL% 0.6 % (0.0-7.0); HEMATOCRIT 43.2 % (38.0-50.0); HEMOGLOBIN 13.3 gm/dL (13.0-16.0); LYMPHOCYTE% 25.9 % (17.0-45.0); MEAN CELL VOLUME 90.5 FL (83-96); MEAN CORPUSCULAR HEMOGLOBIN 27.9 PG (28-34); MEAN CORPUSCULAR HGB CONC 30.8 g/dL (30-36); MONOCYTE# 0.9 X10e3 (0-1.0); MONOCYTE% 4.5 % (3.0-12.0); NEUTROPHIL# 13.3 X10e3 (1.5-7.1); NEUTROPHIL% 68.5 % (40-75); PLATELET COUNT 157 X10e3 (140-420); RED BLOOD COUNT 4.78 X10e (3.90-5.60); RED CELL DISTRIBUTION WIDTH 15.8 % (11.0-15.5); WHITE BLOOD COUNT 19.4 X10e3 (4.0-10.5)
[2016-07-31 23:52] LABS: ALBUMIN SERUM 2.9 g/dL (3.5-5.0); BUN/CREATININE RATIO 17.77; CALCIUM SERUM 7.9 mg/dL (8.4-10.2); CREATININE SERUM 0.9 mg/dL (0.6-1.4); DIFF IND YES; GLOM FILT RATE Estimated 96.5 mL/min (>60); MAGNESIUM 2.7 mg/dL (1.6-3.0); POTASSIUM 3.8 mmol/L (3.5-5.1)
[2016-08-01 00:15] LABS: ANISOCYTOSIS SL; NUCLEATED RED BLOOD CELL 1 /100 (0); PLATELET ESTIMATE DECREASED (NORMAL)
[2016-08-01 04:07] LABS: ARTERIAL BLOOD GAS ALLEN TEST NORMAL; ARTERIAL BLOOD GAS ART SITE RIGHT BRACHIAL; ARTERIAL BLOOD GAS CARBOXY HB 0.7 %sat (0.0-9.0); ARTERIAL BLOOD GAS DELIVERY VENT; ARTERIAL BLOOD GAS MET HB 0.7 %sat (0.0-2.0); ARTERIAL BLOOD GAS PCO2 30.1 mmHg (35.0-45.0); ARTERIAL BLOOD GAS PO2 74.3 mmHg (80.0-100); ARTERIAL BLOOD GAS VENT MODE AC; ARTERIAL BLOOD GAS pH 7.452 (7.350-7.450); ARTERIAL DRAW? YES
[2016-08-01 05:36] LABS: BASOPHIL% 0.2 % (0-2.5); EOSINOPHIL% 0.1 % (0.0-7.0); HEMATOCRIT 36.5 % (38.0-50.0); HEMOGLOBIN 11.6 gm/dL (13.0-16.0); LYMPHOCYTE# 0.4 X10e3 (1.0-3.5); LYMPHOCYTE% 2.8 % (17.0-45.0); MEAN CELL VOLUME 88.1 FL (83-96); MEAN CORPUSCULAR HEMOGLOBIN 27.9 PG (28-34); MEAN CORPUSCULAR HGB CONC 31.7 g/dL (30-36); MEAN PLATELET VOLUME 9.9 FL (6.5-11.5); MONOCYTE# 0.7 X10e3 (0-1.0); MONOCYTE% 5.1 % (3.0-12.0); NEUTROPHIL# 12.8 X10e3 (1.5-7.1); NEUTROPHIL% 91.8 % (40-75); PLATELET COUNT 106 X10e3 (140-420); RED BLOOD COUNT 4.14 X10e (3.90-5.60); RED CELL DISTRIBUTION WIDTH 15.9 % (11.0-15.5); WHITE BLOOD COUNT 13.9 X10e3 (4.0-10.5)
[2016-08-01 05:37] LABS: DIFF IND NO
[2016-08-01 06:51] LABS: ALBUMIN SERUM 2.3 g/dL (3.5-5.0); BILIRUBIN,TOTAL 0.8 mg/dL (0.2-2.0); CALCIUM SERUM 7.3 mg/dL (8.4-10.2); POTASSIUM 3.4 mmol/L (3.5-5.1); PROTEIN TOTAL SERUM 4.5 g/dL (6.0-8.3)
[2016-08-01 07:41] LABS: %MB 10.5 % (0.0-4.0); MB 39.3 ng/ml
[2016-08-02 03:52] LABS: ARTERIAL BLD GAS O2 SATURATION 97.1 % (90.0-100.0); ARTERIAL BLOOD GAS CARBOXY HB 1.2 %sat (0.0-9.0); ARTERIAL BLOOD GAS HCO3 22.5 mmol/L; ARTERIAL BLOOD GAS MET HB 1.2 %sat (0.0-2.0); ARTERIAL BLOOD GAS PCO2 27.7 mmHg (35.0-45.0); ARTERIAL BLOOD GAS pH 7.519 (7.350-7.450)
[2016-08-02 04:01] LABS: ARTERIAL DRAW? YES
[2016-08-02 04:02] LABS: ARTERIAL BLOOD GAS ART SITE RIGHT BRACHIAL; ARTERIAL BLOOD GAS DELIVERY VENT; ARTERIAL BLOOD GAS VENT MODE AC
[2016-08-02 05:59] LABS: BASOPHIL% 0.3 % (0-2.5); EOSINOPHIL% 0.2 % (0.0-7.0); HEMATOCRIT 36.6 % (38.0-50.0); HEMOGLOBIN 11.8 gm/dL (13.0-16.0); LYMPHOCYTE# 0.6 X10e3 (1.0-3.5); LYMPHOCYTE% 6.9 % (17.0-45.0); MEAN CELL VOLUME 88.2 FL (83-96); MEAN CORPUSCULAR HEMOGLOBIN 28.4 PG (28-34); MEAN CORPUSCULAR HGB CONC 32.2 g/dL (30-36); MEAN PLATELET VOLUME 10.3 FL (6.5-11.5); MONOCYTE# 0.5 X10e3 (0-1.0); MONOCYTE% 5.5 % (3.0-12.0); NEUTROPHIL# 7.3 X10e3 (1.5-7.1); NEUTROPHIL% 87.1 % (40-75); RED BLOOD COUNT 4.15 X10e (3.90-5.60); RED CELL DISTRIBUTION WIDTH 16.5 % (11.0-15.5); WHITE BLOOD COUNT 8.4 X10e3 (4.0-10.5)
[2016-08-02 06:50] LABS: ALBUMIN SERUM 2.4 g/dL (3.5-5.0); BUN/CREATININE RATIO 10.66; CALCIUM SERUM 7.8 mg/dL (8.4-10.2); CREATININE SERUM 1.5 mg/dL (0.6-1.4); GLOM FILT RATE Estimated 52.1 mL/min (>60); POTASSIUM 3.2 mmol/L (3.5-5.1); PROTEIN TOTAL SERUM 5.1 g/dL (6.0-8.3)
[2016-08-02 07:03] LABS: PLATELET COUNT 83 X10e3 (140-420)
[2016-08-02 07:05] LABS: DIFF IND NO
[2016-08-03 04:09] LABS: ARTERIAL BLD GAS O2 SATURATION 99.1 % (90.0-100.0); ARTERIAL BLOOD GAS CARBOXY HB 0.5 %sat (0.0-9.0); ARTERIAL BLOOD GAS HCO3 20.7 mmol/L; ARTERIAL BLOOD GAS MET HB 0.5 %sat (0.0-2.0); ARTERIAL BLOOD GAS pH 7.476 (7.350-7.450)
[2016-08-03 04:16] LABS: ARTERIAL BLOOD GAS ART SITE LEFT BRACHIAL; ARTERIAL BLOOD GAS DELIVERY VENT; ARTERIAL BLOOD GAS VENT MODE AC; ARTERIAL DRAW? YES
[2016-08-03 06:17] LABS: BASOPHIL# 0.1 X10e3 (0-0.3); BASOPHIL% 0.4 % (0-2.5); EOSINOPHIL# 0.3 X10e3 (0-0.7); HEMATOCRIT 33.8 % (38.0-50.0); HEMOGLOBIN 10.8 gm/dL (13.0-16.0); LYMPHOCYTE# 1.5 X10e3 (1.0-3.5); MEAN CELL VOLUME 87.6 FL (83-96); MEAN CORPUSCULAR HEMOGLOBIN 28.1 PG (28-34); MEAN CORPUSCULAR HGB CONC 32.1 g/dL (30-36); MEAN PLATELET VOLUME 10.4 FL (6.5-11.5); MONOCYTE# 0.5 X10e3 (0-1.0); MONOCYTE% 3.5 % (3.0-12.0); NEUTROPHIL# 11.2 X10e3 (1.5-7.1); NEUTROPHIL% 83.1 % (40-75); RED BLOOD COUNT 3.86 X10e (3.90-5.60); RED CELL DISTRIBUTION WIDTH 16.6 % (11.0-15.5)
[2016-08-03 06:49] LABS: WHITE BLOOD COUNT 13.4 X10e3 (4.0-10.5)
[2016-08-03 06:50] LABS: DIFF IND YES; PLATELET COUNT 90 X10e3 (140-420)
[2016-08-03 06:52] LABS: ALBUMIN SERUM 2.2 g/dL (3.5-5.0); BILIRUBIN,TOTAL 0.6 mg/dL (0.2-2.0); BUN/CREATININE RATIO 11.33; CALCIUM SERUM 7.8 mg/dL (8.4-10.2); CREATININE SERUM 1.5 mg/dL (0.6-1.4); GLOM FILT RATE Estimated 52.1 mL/min (>60); MAGNESIUM 2.3 mg/dL (1.6-3.0); POTASSIUM 3.2 mmol/L (3.5-5.1); PROTEIN TOTAL SERUM 5.1 g/dL (6.0-8.3)
[2016-08-03 09:44] LABS: ANISOCYTOSIS SL; PLATELET ESTIMATE DECREASED (NORMAL)
[2016-08-03 20:45] LABS: BASOPHIL# 0.1 X10e3 (0-0.3); BASOPHIL% 0.6 % (0-2.5); EOSINOPHIL# 0.4 X10e3 (0-0.7); EOSINOPHIL% 3.1 % (0.0-7.0); HEMATOCRIT 35.1 % (38.0-50.0); HEMOGLOBIN 11.5 gm/dL (13.0-16.0); LYMPHOCYTE# 1.5 X10e3 (1.0-3.5); LYMPHOCYTE% 11.6 % (17.0-45.0); MEAN CELL VOLUME 87.3 FL (83-96); MEAN CORPUSCULAR HEMOGLOBIN 28.4 PG (28-34); MEAN CORPUSCULAR HGB CONC 32.6 g/dL (30-36); MEAN PLATELET VOLUME 10.1 FL (6.5-11.5); MONOCYTE# 0.8 X10e3 (0-1.0); MONOCYTE% 6.5 % (3.0-12.0); NEUTROPHIL% 78.2 % (40-75); PLATELET COUNT 90 X10e3 (140-420); RED BLOOD COUNT 4.03 X10e (3.90-5.60); RED CELL DISTRIBUTION WIDTH 17.1 % (11.0-15.5); WHITE BLOOD COUNT 12.8 X10e3 (4.0-10.5)
[2016-08-03 20:47] LABS: DIFF IND NO
[2016-08-03 21:06] LABS: ALBUMIN SERUM 2.4 g/dL (3.5-5.0); BILIRUBIN,TOTAL 1.1 mg/dL (0.2-2.0); CALCIUM SERUM 8.3 mg/dL (8.4-10.2); CREATININE SERUM 1.6 mg/dL (0.6-1.4); GLOM FILT RATE Estimated 48.2 mL/min (>60); MAGNESIUM 2.1 mg/dL (1.6-3.0); POTASSIUM 3.9 mmol/L (3.5-5.1); PROTEIN TOTAL SERUM 5.3 g/dL (6.0-8.3)
[2016-08-04 04:24] LABS: ARTERIAL BLD GAS O2 SATURATION 98.2 % (90.0-100.0); ARTERIAL BLOOD GAS CARBOXY HB 0.6 %sat (0.0-9.0); ARTERIAL BLOOD GAS HCO3 21.6 mmol/L; ARTERIAL BLOOD GAS MET HB 0.8 %sat (0.0-2.0); ARTERIAL BLOOD GAS PCO2 30.8 mmHg (35.0-45.0); ARTERIAL BLOOD GAS pH 7.454 (7.350-7.450)
[2016-08-04 04:32] LABS: ARTERIAL BLOOD GAS ALLEN TEST NORMAL; ARTERIAL BLOOD GAS ART SITE LEFT RADIAL; ARTERIAL BLOOD GAS VENT MODE AC; ARTERIAL DRAW? YES
[2016-08-04 06:16] LABS: HEMATOCRIT 34.9 % (38.0-50.0); HEMOGLOBIN 11.2 gm/dL (13.0-16.0); MEAN CELL VOLUME 88.6 FL (83-96); MEAN CORPUSCULAR HEMOGLOBIN 28.5 PG (28-34); MEAN CORPUSCULAR HGB CONC 32.2 g/dL (30-36); MEAN PLATELET VOLUME 10.7 FL (6.5-11.5); RED BLOOD COUNT 3.93 X10e (3.90-5.60); WHITE BLOOD COUNT 10.9 X10e3 (4.0-10.5)
[2016-08-04 06:49] LABS: ALBUMIN SERUM 2.1 g/dL (3.5-5.0); BILIRUBIN,TOTAL 0.6 mg/dL (0.2-2.0); BUN/CREATININE RATIO 8.82; CALCIUM SERUM 8.7 mg/dL (8.4-10.2); CREATININE SERUM 1.7 mg/dL (0.6-1.4); GLOM FILT RATE Estimated 44.7 mL/min (>60); MAGNESIUM 2.1 mg/dL (1.6-3.0); POTASSIUM 3.9 mmol/L (3.5-5.1); PROTEIN TOTAL SERUM 4.7 g/dL (6.0-8.3)
[2016-08-04 19:38] LABS: ARTERIAL BLD GAS O2 SATURATION 99.1 % (90.0-100.0); ARTERIAL BLOOD GAS CARBOXY HB 0.5 %sat (0.0-9.0); ARTERIAL BLOOD GAS HCO3 22.8 mmol/L; ARTERIAL BLOOD GAS MET HB 0.7 %sat (0.0-2.0); ARTERIAL BLOOD GAS PCO2 42.6 mmHg (35.0-45.0); ARTERIAL BLOOD GAS pH 7.337 (7.350-7.450)
[2016-08-04 19:42] LABS: ARTERIAL BLOOD GAS ALLEN TEST NORMAL; ARTERIAL BLOOD GAS ART SITE RIGHT RADIAL; ARTERIAL DRAW? YES
[2016-08-04 19:43] LABS: ARTERIAL BLOOD GAS VENT MODE AC
[2016-08-04 20:36] LABS: HEMATOCRIT 33.6 % (38.0-50.0); HEMOGLOBIN 10.8 gm/dL (13.0-16.0); MEAN CELL VOLUME 88.9 FL (83-96); MEAN CORPUSCULAR HEMOGLOBIN 28.5 PG (28-34); MEAN CORPUSCULAR HGB CONC 32.1 g/dL (30-36); MEAN PLATELET VOLUME 10.4 FL (6.5-11.5); RED BLOOD COUNT 3.78 X10e (3.90-5.60); RED CELL DISTRIBUTION WIDTH 17.9 % (11.0-15.5); WHITE BLOOD COUNT 9.3 X10e3 (4.0-10.5)
[2016-08-04 20:42] LABS: INR 1.1; PARTIAL THROMBOPLASTIN TIME 36.4 SECONDS (23.5-31.3); PROTHROMBIN TIME (PATIENT) 12.3 SECONDS (10.0-11.7)
[2016-08-04 20:59] LABS: ALBUMIN SERUM 2.1 g/dL (3.5-5.0); BILIRUBIN, DIRECT 0.3 mg/dL (0.0-0.2); BILIRUBIN,TOTAL 0.6 mg/dL (0.2-2.0); BUN/CREATININE RATIO 8.82; CALCIUM SERUM 8.6 mg/dL (8.4-10.2); CREATININE SERUM 1.7 mg/dL (0.6-1.4); GLOM FILT RATE Estimated 44.7 mL/min (>60); MAGNESIUM 2.1 mg/dL (1.6-3.0); PHOSPHOROUS 1.1 mg/dL (2.5-4.6); POTASSIUM 3.3 mmol/L (3.5-5.1); PROTEIN TOTAL SERUM 5.1 g/dL (6.0-8.3)
[2016-08-05 02:08] LABS: ARTERIAL BLD GAS O2 SATURATION 98.8 % (90.0-100.0); ARTERIAL BLOOD GAS CARBOXY HB 0.3 %sat (0.0-9.0); ARTERIAL BLOOD GAS HCO3 22.2 mmol/L; ARTERIAL BLOOD GAS MET HB 0.8 %sat (0.0-2.0); ARTERIAL BLOOD GAS pH 7.232 (7.350-7.450)
[2016-08-05 02:09] LABS: ARTERIAL BLOOD GAS ART SITE ARTERIAL LINE; ARTERIAL BLOOD GAS PCO2 52.9 mmHg (35.0-45.0); ARTERIAL BLOOD GAS VENT MODE AC; ARTERIAL DRAW? NO
[2016-08-05 02:28] LABS: BASOPHIL% 0.4 % (0-2.5); EOSINOPHIL# 0.2 X10e3 (0-0.7); EOSINOPHIL% 1.6 % (0.0-7.0); HEMATOCRIT 33.4 % (38.0-50.0); HEMOGLOBIN 10.5 gm/dL (13.0-16.0); LYMPHOCYTE# 0.7 X10e3 (1.0-3.5); MEAN CELL VOLUME 90.9 FL (83-96); MEAN CORPUSCULAR HEMOGLOBIN 28.5 PG (28-34); MEAN CORPUSCULAR HGB CONC 31.3 g/dL (30-36); MEAN PLATELET VOLUME 10.2 FL (6.5-11.5); MONOCYTE# 1.1 X10e3 (0-1.0); MONOCYTE% 10.5 % (3.0-12.0); NEUTROPHIL# 8.2 X10e3 (1.5-7.1); NEUTROPHIL% 80.5 % (40-75); PLATELET COUNT 82 X10e3 (140-420); RED BLOOD COUNT 3.67 X10e (3.90-5.60); WHITE BLOOD COUNT 10.2 X10e3 (4.0-10.5)
[2016-08-05 02:29] LABS: DIFF IND NO
[2016-08-05 02:45] LABS: INR 1.2; PARTIAL THROMBOPLASTIN TIME 35.9 SECONDS (23.5-31.3); PROTHROMBIN TIME (PATIENT) 12.5 SECONDS (10.0-11.7)
[2016-08-05 02:57] LABS: ALBUMIN SERUM 2.1 g/dL (3.5-5.0); BILIRUBIN,TOTAL 0.5 mg/dL (0.2-2.0); BUN/CREATININE RATIO 9.37; CALCIUM SERUM 8.3 mg/dL (8.4-10.2); CREATININE SERUM 1.6 mg/dL (0.6-1.4); GLOM FILT RATE Estimated 48.2 mL/min (>60); MAGNESIUM 1.9 mg/dL (1.6-3.0); PHOSPHOROUS 2.3 mg/dL (2.5-4.6); POTASSIUM 4.2 mmol/L (3.5-5.1)
[2016-08-05 03:15] LABS: MB 2.4 ng/ml
[2016-08-05 03:53] LABS: BILIRUBIN, DIRECT 0.4 mg/dL (0.0-0.2)
[2016-08-05 06:15] LABS: URINE APPEARANCE CLEAR; URINE BILIRUBIN NEG (NEG); URINE BLOOD 2+ (NEG); URINE COLOR YELLOW; URINE GLUCOSE 250 MG/DL (NEG); URINE KETONE NEG (NEG); URINE LEUKOCYTE ESTERASE TRACE (NEG); URINE NITRATE NEG (NEG); URINE PROTEIN TRACE (NEG); URINE SPECIFIC GRAVITY 1.011 (1.003-1.035)
[2016-08-05 06:17] LABS: URINE BACTERIA AUWI NEG (NEGATIVE); URINE SQUAMOUS EPITHELIAL CELL OCC /[HPF]
[2016-08-05 07:03] LABS: BASOPHIL% 0.3 % (0-2.5); EOSINOPHIL% 0.2 % (0.0-7.0); HEMATOCRIT 32.4 % (38.0-50.0); HEMOGLOBIN 10.6 gm/dL (13.0-16.0); INR 1.2; LYMPHOCYTE# 0.2 X10e3 (1.0-3.5); LYMPHOCYTE% 2.8 % (17.0-45.0); MEAN CELL VOLUME 87.7 FL (83-96); MEAN CORPUSCULAR HEMOGLOBIN 28.6 PG (28-34); MEAN CORPUSCULAR HGB CONC 32.6 g/dL (30-36); MONOCYTE# 0.2 X10e3 (0-1.0); NEUTROPHIL# 7.1 X10e3 (1.5-7.1); NEUTROPHIL% 93.7 % (40-75); PARTIAL THROMBOPLASTIN TIME 35.7 SECONDS (23.5-31.3); PLATELET COUNT 69 X10e3 (140-420); PROTHROMBIN TIME (PATIENT) 12.6 SECONDS (10.0-11.7); RED CELL DISTRIBUTION WIDTH 17.2 % (11.0-15.5); WHITE BLOOD COUNT 7.6 X10e3 (4.0-10.5)
[2016-08-05 07:05] LABS: DIFF IND NO
[2016-08-05 08:28] LABS: ALBUMIN SERUM 2.2 g/dL (3.5-5.0); BILIRUBIN, DIRECT 0.5 mg/dL (0.0-0.2); BILIRUBIN,TOTAL 1.3 mg/dL (0.2-2.0); PHOSPHOROUS 1.4 mg/dL (2.5-4.6); PROTEIN TOTAL SERUM 5.1 g/dL (6.0-8.3)
[2016-08-05 09:12] LABS: BUN/CREATININE RATIO 8.82; CREATININE SERUM 1.7 mg/dL (0.6-1.4)
[2016-08-05 09:14] LABS: GLOM FILT RATE Estimated 44.7 mL/min (>60)
[2016-08-05 09:17] LABS: CALCIUM SERUM 8.5 mg/dL (8.4-10.2); MAGNESIUM 1.7 mg/dL (1.6-3.0)
[2016-08-05 09:53] LABS: ARTERIAL BLD GAS O2 SATURATION 99.1 % (90.0-100.0); ARTERIAL BLOOD GAS CARBOXY HB 0.3 %sat (0.0-9.0); ARTERIAL BLOOD GAS HCO3 16.9 mmol/L; ARTERIAL BLOOD GAS MET HB 0.5 %sat (0.0-2.0); ARTERIAL BLOOD GAS PCO2 24.3 mmHg (35.0-45.0); ARTERIAL BLOOD GAS pH 7.451 (7.350-7.450)
[2016-08-05 09:54] LABS: ARTERIAL BLOOD GAS ALLEN TEST NORMAL; ARTERIAL DRAW? YES
[2016-08-05 09:55] LABS: ARTERIAL BLOOD GAS ART SITE ARTERIAL LINE; ARTERIAL BLOOD GAS DELIVERY VENT; ARTERIAL BLOOD GAS VENT MODE PC
[2016-08-05 10:21] LABS: ARTERIAL BLD GAS O2 SATURATION 98.9 % (90.0-100.0); ARTERIAL BLOOD GAS CARBOXY HB 0.5 %sat (0.0-9.0); ARTERIAL BLOOD GAS HCO3 23.1 mmol/L; ARTERIAL BLOOD GAS MET HB 1.1 %sat (0.0-2.0); ARTERIAL BLOOD GAS PCO2 29.2 mmHg (35.0-45.0); ARTERIAL BLOOD GAS pH 7.508 (7.350-7.450)
[2016-08-05 10:23] LABS: ARTERIAL BLOOD GAS ALLEN TEST NORMAL; ARTERIAL BLOOD GAS ART SITE ARTERIAL LINE; ARTERIAL DRAW? YES
[2016-08-05 10:24] LABS: ARTERIAL BLOOD GAS DELIVERY VENT; ARTERIAL BLOOD GAS VENT MODE PC
[2016-08-05 10:25] LABS: BILIRUBIN,TOTAL 1.4 mg/dL (0.2-2.0); BUN/CREATININE RATIO 9.41; CALCIUM SERUM 8.1 mg/dL (8.4-10.2); CREATININE SERUM 1.7 mg/dL (0.6-1.4); GLOM FILT RATE Estimated 44.7 mL/min (>60); POTASSIUM 4.2 mmol/L (3.5-5.1); PROTEIN TOTAL SERUM 4.7 g/dL (6.0-8.3)
[2016-08-05 11:24] LABS: BASOPHIL% 0.2 % (0-2.5); HEMATOCRIT 32.1 % (38.0-50.0); HEMOGLOBIN 10.4 gm/dL (13.0-16.0); LYMPHOCYTE# 0.2 X10e3 (1.0-3.5); LYMPHOCYTE% 2.7 % (17.0-45.0); MEAN CELL VOLUME 88.2 FL (83-96); MEAN CORPUSCULAR HEMOGLOBIN 28.6 PG (28-34); MEAN CORPUSCULAR HGB CONC 32.4 g/dL (30-36); MEAN PLATELET VOLUME 10.4 FL (6.5-11.5); MONOCYTE# 0.2 X10e3 (0-1.0); NEUTROPHIL# 6.3 X10e3 (1.5-7.1); NEUTROPHIL% 94.1 % (40-75); PLATELET COUNT 62 X10e3 (140-420); RED BLOOD COUNT 3.64 X10e (3.90-5.60); RED CELL DISTRIBUTION WIDTH 17.3 % (11.0-15.5); WHITE BLOOD COUNT 6.8 X10e3 (4.0-10.5)
[2016-08-05 11:27] LABS: DIFF IND NO; INR 1.2; PARTIAL THROMBOPLASTIN TIME 37.1 SECONDS (23.5-31.3); PROTHROMBIN TIME (PATIENT) 12.9 SECONDS (10.0-11.7)
[2016-08-05 11:30] LABS: MAGNESIUM 1.6 mg/dL (1.6-3.0); PHOSPHOROUS 2.3 mg/dL (2.5-4.6)
[2016-08-05 14:09] LABS: ARTERIAL BLOOD GAS CARBOXY HB 0.3 %sat (0.0-9.0); ARTERIAL BLOOD GAS HCO3 20.4 mmol/L; ARTERIAL BLOOD GAS MET HB 0.7 %sat (0.0-2.0); ARTERIAL BLOOD GAS PCO2 29.1 mmHg (35.0-45.0); ARTERIAL BLOOD GAS pH 7.454 (7.350-7.450)
[2016-08-05 14:11] LABS: ARTERIAL BLOOD GAS ALLEN TEST NORMAL; ARTERIAL BLOOD GAS ART SITE ARTERIAL LINE; ARTERIAL BLOOD GAS DELIVERY VENT; ARTERIAL BLOOD GAS VENT MODE PC; ARTERIAL DRAW? YES
[2016-08-05 14:17] LABS: BASOPHIL% 0.2 % (0-2.5); HEMATOCRIT 28.3 % (38.0-50.0); HEMOGLOBIN 9.1 gm/dL (13.0-16.0); LYMPHOCYTE# 0.3 X10e3 (1.0-3.5); LYMPHOCYTE% 4.2 % (17.0-45.0); MEAN CELL VOLUME 87.5 FL (83-96); MEAN CORPUSCULAR HEMOGLOBIN 28.2 PG (28-34); MEAN CORPUSCULAR HGB CONC 32.3 g/dL (30-36); MONOCYTE# 0.4 X10e3 (0-1.0); NEUTROPHIL# 6.7 X10e3 (1.5-7.1); NEUTROPHIL% 90.6 % (40-75); PLATELET COUNT 58 X10e3 (140-420); RED BLOOD COUNT 3.24 X10e (3.90-5.60); RED CELL DISTRIBUTION WIDTH 17.3 % (11.0-15.5); WHITE BLOOD COUNT 7.4 X10e3 (4.0-10.5)
[2016-08-05 14:21] LABS: DIFF IND NO
[2016-08-05 14:36] LABS: INR 1.1; PARTIAL THROMBOPLASTIN TIME 39.9 SECONDS (23.5-31.3); PROTHROMBIN TIME (PATIENT) 12.2 SECONDS (10.0-11.7)
[2016-08-05 14:44] LABS: ALBUMIN SERUM 2.5 g/dL (3.5-5.0); BILIRUBIN, DIRECT 0.4 mg/dL (0.0-0.2); BUN/CREATININE RATIO 10.58; CALCIUM SERUM 8.2 mg/dL (8.4-10.2); CREATININE SERUM 1.7 mg/dL (0.6-1.4); GLOM FILT RATE Estimated 44.7 mL/min (>60); POTASSIUM 4.6 mmol/L (3.5-5.1); PROTEIN TOTAL SERUM 5.5 g/dL (6.0-8.3)
[2016-08-05 15:25] LABS: ARTERIAL BLD GAS O2 SATURATION 98.5 % (90.0-100.0); ARTERIAL BLOOD GAS CARBOXY HB 0.5 %sat (0.0-9.0); ARTERIAL BLOOD GAS HCO3 21.2 mmol/L; ARTERIAL BLOOD GAS MET HB 1.2 %sat (0.0-2.0); ARTERIAL BLOOD GAS PCO2 35.9 mmHg (35.0-45.0); ARTERIAL BLOOD GAS pH 7.379 (7.350-7.450)
[2016-08-05 15:26] LABS: ARTERIAL BLOOD GAS ALLEN TEST NORMAL; ARTERIAL BLOOD GAS ART SITE ARTERIAL LINE; ARTERIAL BLOOD GAS DELIVERY VENT; ARTERIAL BLOOD GAS VENT MODE PC; ARTERIAL DRAW? YES
[2016-08-05 18:21] LABS: ARTERIAL BLD GAS O2 SATURATION 97.9 % (90.0-100.0); ARTERIAL BLOOD GAS CARBOXY HB 0.6 %sat (0.0-9.0); ARTERIAL BLOOD GAS HCO3 23.9 mmol/L; ARTERIAL BLOOD GAS MET HB 0.9 %sat (0.0-2.0); ARTERIAL BLOOD GAS PCO2 41.2 mmHg (35.0-45.0); ARTERIAL BLOOD GAS pH 7.372 (7.350-7.450); ARTERIAL DRAW? YES
[2016-08-05 18:22] LABS: ARTERIAL BLOOD GAS ALLEN TEST NORMAL; ARTERIAL BLOOD GAS ART SITE ARTERIAL LINE; ARTERIAL BLOOD GAS DELIVERY VENT; ARTERIAL BLOOD GAS VENT MODE PC
[2016-08-05 18:23] LABS: HEMATOCRIT 27.6 % (38.0-50.0); HEMOGLOBIN 8.9 gm/dL (13.0-16.0); LYMPHOCYTE# 0.3 X10e3 (1.0-3.5); MEAN CELL VOLUME 88.4 FL (83-96); MEAN CORPUSCULAR HEMOGLOBIN 28.4 PG (28-34); MEAN CORPUSCULAR HGB CONC 32.1 g/dL (30-36); MEAN PLATELET VOLUME 10.8 FL (6.5-11.5); MONOCYTE# 0.6 X10e3 (0-1.0); MONOCYTE% 6.9 % (3.0-12.0); NEUTROPHIL# 7.5 X10e3 (1.5-7.1); NEUTROPHIL% 89.1 % (40-75); PLATELET COUNT 63 X10e3 (140-420); RED BLOOD COUNT 3.12 X10e (3.90-5.60); RED CELL DISTRIBUTION WIDTH 17.2 % (11.0-15.5); WHITE BLOOD COUNT 8.4 X10e3 (4.0-10.5)
[2016-08-05 18:37] LABS: INR 1.1; PARTIAL THROMBOPLASTIN TIME 42.1 SECONDS (23.5-31.3); PROTHROMBIN TIME (PATIENT) 12.4 SECONDS (10.0-11.7)
[2016-08-05 18:38] LABS: DIFF IND NO
[2016-08-05 18:40] LABS: ALBUMIN SERUM 2.8 g/dL (3.5-5.0); BILIRUBIN, DIRECT 0.5 mg/dL (0.0-0.2); BILIRUBIN,INDIRECT 0.3 mg/dL (0.0-0.9); BILIRUBIN,TOTAL 0.8 mg/dL (0.2-2.0); BUN/CREATININE RATIO 10.55; CREATININE SERUM 1.8 mg/dL (0.6-1.4); GLOM FILT RATE Estimated 41.7 mL/min (>60); MAGNESIUM 2.1 mg/dL (1.6-3.0); POTASSIUM 4.1 mmol/L (3.5-5.1); PROTEIN TOTAL SERUM 5.4 g/dL (6.0-8.3)
[2016-08-05 20:02] LABS: URINE APPEARANCE CLEAR; URINE BILIRUBIN NEG (NEG); URINE BLOOD 1+ (NEG); URINE COLOR YELLOW; URINE GLUCOSE >1000 MG/DL (NEG); URINE KETONE NEG (NEG); URINE LEUKOCYTE ESTERASE NEG (NEG); URINE NITRATE NEG (NEG); URINE PROTEIN NEG (NEG); URINE UROBILINOGEN 0.2 MG/DL (NEG)
[2016-08-05 20:04] LABS: URINE BACTERIA AUWI NEG (NEGATIVE); URINE SQUAMOUS EPITHELIAL CELL NONE SEEN /[HPF]
[2016-08-05 20:28] LABS: CULTURE INDICATED? NO; U HYALINE CASTS AUWI 0-2 /[LPF]
[2016-08-05 20:29] LABS: URINE AMORPHOUS SEDIMENT AMORP URATES
[2016-08-05 22:00] LABS: ARTERIAL BLD GAS O2 SATURATION 98.9 % (90.0-100.0); ARTERIAL BLOOD GAS CARBOXY HB 0.4 %sat (0.0-9.0); ARTERIAL BLOOD GAS HCO3 25.2 mmol/L; ARTERIAL BLOOD GAS MET HB 0.9 %sat (0.0-2.0); ARTERIAL BLOOD GAS PCO2 46.7 mmHg (35.0-45.0)
[2016-08-05 22:02] LABS: ARTERIAL BLOOD GAS ART SITE ARTERIAL LINE; ARTERIAL BLOOD GAS DELIVERY VENT; ARTERIAL BLOOD GAS VENT MODE PC; ARTERIAL DRAW? YES
== END 2016-08-05 11:59 | disposition expired | DRG 870 ==
LOC: CED 10:52 → CEDOF 13:56 → CICCU2 13:56 → C3A PCU 07-31 16:09 → CICCU2 07-31 22:40
PROVIDERS: Family Medicine; Internal Medicine; Internal Medicine Cardiovascular Disease; Internal Medicine Pulmonary Disease; Student in an Organized Health Care Education/Training Program
PROC: 05H433Z Insertion of Infusion Device into Left Innominate Vein, Percutaneous Approach (ICD-10-PCS; principal; 2016-07-30)
PROC: B54NZZA Ultrasonography of Left Upper Extremity Veins, Guidance (ICD-10-PCS; 2016-07-30)
PROC: 5A1955Z Respiratory Ventilation, Greater than 96 Consecutive Hours (ICD-10-PCS; 2016-07-31)
PROC: 5A12012 Performance of Cardiac Output, Single, Manual (ICD-10-PCS; 2016-07-31)
PROC: 0BH17EZ Insertion of Endotracheal Airway into Trachea, Via Natural or Artificial Opening (ICD-10-PCS; 2016-07-31)
PROC: B24BYZZ Ultrasonography of Heart with Aorta using Other Contrast (ICD-10-PCS; 2016-07-31)
DX: A41.52 Sepsis due to Pseudomonas (principal); I21.4 Non-ST elevation (NSTEMI) myocardial infarction; K72.00 Acute and subacute hepatic failure without coma; I46.9 Cardiac arrest, cause unspecified; J96.01 Acute respiratory failure with hypoxia; G92 Toxic encephalopathy; R65.21 Severe sepsis with septic shock; J69.0 Pneumonitis due to inhalation of food and vomit; Z93.0 Tracheostomy status; I50.33 Acute on chronic diastolic (congestive) heart failure; E43 Unspecified severe protein-calorie malnutrition; G93.1 Anoxic brain damage, not elsewhere classified; N39.0 Urinary tract infection, site not specified; I47.2 Ventricular tachycardia; N17.9 Acute kidney failure, unspecified; E87.0 Hyperosmolality and hypernatremia; I25.10 Atherosclerotic heart disease of native coronary artery without angina pectoris; I11.0 Hypertensive heart disease with heart failure; J45.909 Unspecified asthma, uncomplicated; E11.9 Type 2 diabetes mellitus without complications; Z86.73 Personal history of transient ischemic attack (TIA), and cerebral infarction without residual deficits; Z88.0 Allergy status to penicillin; Z79.82 Long term (current) use of aspirin; I25.5 Ischemic cardiomyopathy; N21.0 Calculus in bladder; Z79.4 Long term (current) use of insulin; Z68.20 Body mass index [BMI] 20.0-20.9, adult; I69.991 Dysphagia following unspecified cerebrovascular disease; R13.10 Dysphagia, unspecified; E87.6 Hypokalemia; Z66 Do not resuscitate; T68.XXXA Hypothermia, initial encounter; D69.6 Thrombocytopenia, unspecified
CPT/HCPCS: 36415; 36600; 51702; 70450; 71010; 71250; 74176; 78606; 80048; 80053; 80061; 80076; 81003; 82150; 82247; 82248; 82308; 82330; 82550; 82553; 82607; 82746; 82803; 82947; 82977; 83036; 83605; 83690; 83735; 83880; 84100; 84132; 84443; 84484; 85025; 85027; 85610; 85730; 86850; 86900; 86901; 86923; 87040; 87045; 87070; 87086; 87088; 87186; 87205; 87427; 87493; 87899; 88305; 88307; 88313; 88331; 92950; 93005; 93306; 93308; 94002; 94003; 94760; 94761; 97116; 99291; A9539; A9548; C9113; J0171; J0282; J0330; J0610; J1250; J1644; J1650; J1815; J1940; J1956; J2020; J2185; J2250; J2270; J2310; J2370; J2765; J2930; J3260; J3370; J3475; P9045